=== PATIENT | female | born 1985 | race Two or more races ===

== ENCOUNTER 2017-02-14 13:45 | Inpatient (IN) | payer OTHER ==
[2017-02-14 17:09] VITALS: BMI 30.2
--- NOTE | 2017-02-14 17:25 | HP ---
CIWA Score - CIWA Score Nausea/Vomitin-Mild Nausea/No Vomiting Muscle Tremors: 4-Moderate,w/Arms Extend Anxiety: 4-Mod. Anxious/Guarded Agitation: 4-Moderately Restless Paroxysmal Sweats: 1-Minimal Palms Moist Orientation: 1-Uncertain about Date Tacttile Disturbances: 0-None Auditory Disturbances: 0-None Visual Disturbances: 0-None Headache: 2-Mild CIWA-Ar Total Score: 17 Admission ROS S - HPI Chief Complaint: 31 Allergies/Adverse Reactions: Allergies Allergy/AdvReac Type Severity Reaction Status Date / Time gabapentin Allergy Mild Itching Verified 06/15/16 20:51 History of Present Illness: 31 years old female with long history of alcohol nicotine dependence, has cirrhosis of the liver and depression is admitted to detox Exam Limitations: No Limitations - Ebola screening Have you traveled outside of the country in the last 21 days: No Have you had contact with anyone from an Ebola affected area: No Have you been sick,other than usual withdrawal symptoms: No Do you have a fever: No - Review of Systems Constitutional: Chills, Changes in sleep, Weight Stable EENT: reports: No Symptoms Reported Respiratory: reports: Productive cough (yellowish) Cardiac: reports: No Symptoms Reported GI: reports: Nausea, Poor Fluid Intake, Abdominal cramping : reports: No Symptoms Reported, Other (kidney stone 2002) Musculoskeletal: reports: Back Pain, Joint Pain (legs), Muscle Weakness (legs) Integumentary: reports: Bruising (mid lower abdomen - dog bit - 02/13/17 treated at [facility]) Neuro: reports: Tremors Endocrine: reports: No Symptoms Reported Psychiatric: reports: Judgement Intact, Depressed Other Systems: Reviewed and Negative Patient History - Patient Medical History Hx Anemia: Yes Hx Asthma: No Hx Chronic Obstructive Pulmonary Disease (COPD): No Hx Cancer: No Hx Cardiac Disorders: No Hx Congestive Heart Failure: No Hx Hypertension: No Hx Hypercholesterolemia: No Hx Pacemaker: No HX Cerebrovascular Accident: No Hx Seizures: No Hx Dementia: No Hx Diabetes: No Hx Gastrointestinal Disorders: Yes Hx Liver Disease: Yes (cirrhosis, no hepatitis, on transplant list) Hx Genitourinary Disorders: Yes (history of kidney stone 2002) Hx Sexually Transmitted Disorders: No Hx Renal Disease (ESRD): No Hx Thyroid Disease: No Hx Human Immunodeficiency Virus (HIV): No Hx Hepatitis C: No Hx Depression: Yes Hx Suicide Attempt: No Hx Bipolar Disorder: No Hx Schizophrenia: No - Patient Surgical History Past Surgical History: Yes Hx Neurologic Surgery: No Hx Cataract Extraction: No Hx Cardiac Surgery: No Hx Lung Surgery: No Hx Breast Surgery: No Hx Breast Biopsy: No Hx Abdominal Surgery: Yes ( gastric bypass 2006) Hx Appendectomy: No Hx Cholecystectomy: No Hx Genitourinary Surgery: Yes (kidney stone passed 2002) Hx Section: No Hx Orthopedic Surgery: No Hx Hysterectomy: No Other Surgical History: GASTRIC BYPASS Anesthesia Reaction: No - PPD History Previous Implant?: Yes Documented Results: Negative w/o proof Implanted On Prior [facility] Admission?: No PPD to be Administered?: Yes - Reproductive History Patient is a Female of Child Bearing Age (11 -55 yrs old): Yes Last Menstrual Period: 01/21/17 Patient : No - Smoking Cessation Smoking history: Current every day smoker Have you smoked in the past 12 months: Yes Aproximately how many cigarettes per day: 3 If you are a former smoker, when did you quit?: 04/2015 Cigars Per Day: 0 Hx Chewing Tobacco Use: No Initiated information on smoking cessation: Yes 'Breaking Loose' booklet given: 02/14/17 - Substance & Tx. History Hx Alcohol Use: Yes Hx Substance Use: No Substance Use Type: Alcohol Hx Substance Use Treatment: Yes - Substances Abused Alcohol Route: Oral Frequency: Daily Amount used: pint + shayy Age of first use: 20 Date of Last Use: 02/14/17 Family Disease History - Family Disease History Family Disease History: Diabetes: Mother (thyroid bipolar), CA: Father ( ), Other: Mother, Sister (thyroid) Admission Physical Exam S - Vital Signs Vital Signs: Vital Signs - 24 hr 02/14/17 17:06 Temperature 97.7 F Pulse Rate 70 Respiratory 18 Rate Blood Pressure 116/80 - Physical General Appearance: Yes: Nourished, Appropriately Dressed, Moderate Distress, Alcohol on Breath, Tremorous, Irritable, Sweating, Anxious HEENTM: Yes: Hearing grossly Normal, Normal ENT Inspection, Normocephalic, Normal Voice Respiratory: Yes: Chest Non-Tender, Lungs Clear, Normal Breath Sounds, No Respiratory Distress, No Accessory Muscle Use Neck: Yes: Supple, Trachea in good position Breast: Yes: Breasts Symetrical Cardiology: Yes: Regular Rhythm, Regular Rate, S1, S2 Abdominal: Yes: Non Tender, Soft Genitourinary: Yes: Within Normal Limits Back: Yes: Normal Inspection Musculoskeletal: Yes: full range of Motion, Gait Steady (cane), Back pain Extremities: Yes: Normal Range of Motion, Non-Tender, Tremors, Swelling (legs x 1 year) Neurological: Yes: Alert, Motor Strength 5/5, Normal Response, Depressed Affect Integumentary: Yes: Warm Lymphatic: Yes: Within Normal Limits - Diagnostic (1) Opioid dependence with withdrawal Current Visit: Yes Status: Acute (2) Nicotine dependence Current Visit: Yes Status: Acute Qualifiers: Nicotine product type: cigarettes Substance use status: in withdrawal Qualified Code(s): F17.213 - Nicotine dependence, cigarettes, with withdrawal (3) Use of cane as ambulatory aid Current Visit: Yes Status: Acute (4) GERD (gastroesophageal reflux disease) Current Visit: Yes Status: Acute Qualifiers: Esophagitis presence: without esophagitis Qualified Code(s): K21.9 - Gastro-esophageal reflux disease without esophagitis (5) Swelling of lower extremity Current Visit: Yes Status: Chronic (6) Depression (emotion) Current Visit: Yes Status: Suspected Qualifiers: Depression Type: dysthymia Qualified Code(s): F34.1 - Dysthymic disorder (7) Cirrhosis of liver Current Visit: Yes Status: Chronic Qualifiers: Hepatic cirrhosis type: alcoholic cirrhosis Ascites presence: without ascites Qualified Code(s): K70.30 - Alcoholic cirrhosis of liver without ascites Comment: since 2014 (8) S/P gastric bypass Current Visit: Yes Status: Resolved Comment: 2006 (9) Kidney stone Current Visit: Yes Status: Resolved Comment: 2002 Cleared for Admission [facility] - Detox or Rehab [facility] Level of Care: Medically Managed Detox Regimen/Protocol: Librium [facility] Breath Alcohol Content Breath Alcohol Content: 0.112 Urine Pregancy Test - Result Urine Test Results: Negative- NO Line Present Urine Drug Screen - Results Drug Screen Negative: No Urine Drug Screen Results: BZO-Benzodiazepines
[2017-02-14] MEDS ORDERED: MAGNESIUM CITRATE 300 ML BOTTLE PO PRN (17:38)
[2017-02-14] MEDS ORDERED: NICOTINE POLACRILEX 2 MG GUM BC PRN (17:38)
[2017-02-14] MEDS ORDERED: MAGNESIUM HYDROX 2400MG/30ML ORAL SUSPENSION 30 ML CUP PO PRN (17:38)
[2017-02-14] MEDS ORDERED: IBUPROFEN 400 MG TABLET (FP) PO PRN (17:38)
[2017-02-14] MEDS ORDERED: guaiFENesin/D-METHORPHAN HB 10 ML UNIT-DOSE CUPS PO PRN (17:38)
[2017-02-14] MEDS ORDERED: LOPERAMIDE HCL 2 MG CAPSULE PO PRN (17:38)
[2017-02-14] MEDS ORDERED: MENTHOL/PHENOL 1 EACH UD MM PRN (17:38)
[2017-02-14] MEDS ORDERED: P-EPHED 60MG/TRIPROLIDI 2.5MG TABLET PO PRN (17:38)
[2017-02-14] MEDS: chlordiazePOXIDE HCL 25 MG CAPSULE PO PRN (20:39)
[2017-02-14] MEDS: chlordiazePOXIDE HCL 25 MG CAPSULE PO SCH (22:21)
[2017-02-14] MEDS: RANITIDINE HCL 150 MG TABLET (FP) PO SCH (22:22)
[2017-02-14] MEDS: THIAMINE HCL 100 MG TABLET (FP) PO SCH (22:22)
[2017-02-14] MEDS: SPIRONOLACTONE 25 MG TABLET (FP) PO SCH (22:22)
[2017-02-14] MEDS: diphenhydrAMINE HCL 50 MG CAPSULE PO PRN (22:23)
[2017-02-14 23:06] LABS: URINE APPEARANCE SLCLOUDY; URINE BILIRUBIN NEGATIVE (NEGATIVE); URINE BLOOD NEGATIVE (NEGATIVE); URINE COLOR YELLOW; URINE GLUCOSE (UA) NEGATIVE (NEGATIVE); URINE KETONE NEGATIVE (NEGATIVE); URINE NITRITE NEGATIVE (NEGATIVE); URINE PROTEIN NEGATIVE (NEGATIVE); URINE UROBILINOGEN 2.0 E.U/dl E.U./dl (0.2-1.0)
[2017-02-14 23:15] LABS: URINE LEUK ESTERASE TRACE (NEGATIVE)
[2017-02-14 23:26] LABS: URINE BACTERIA FEW /hpf (NONE SEEN); URINE MUCUS MODERATE; URINE RBC 1 /hpf (0-3); URINE WBC 5 /hpf (3-5)
[2017-02-15] MEDS: diphenhydrAMINE HCL 50 MG CAPSULE PO PRN (01:23)
[2017-02-15] MEDS: chlordiazePOXIDE HCL 25 MG CAPSULE PO SCH ×4 (05:41→22:36)
--- NOTE | 2017-02-15 09:15 | CONSULT ---
[facility] Psychiatric Consult - Data Date of interview: 02/15/17 Admission source: [facility] Identifying data: This mis 31 years old female with nultiple medical iossues, withy no history of psychiatric hospita;izations, intoxicated with Alcohol and Nicotine Substance Abuse History: - Smoking Cessation. Smoking history: Current every day smoker. Have you smoked in the past 12 months: Yes. Aproximately how many cigarettes per day: 3. If you are a former smoker, when did you quit?: 04/2015. Cigars Per Day: 0. Hx Chewing Tobacco Use: No. Initiated information on smoking cessation: Yes. 'Breaking Loose' booklet given: 02/14/17. - Substance & Tx. History. Hx Alcohol Use: Yes. Hx Substance Use: No. Substance Use Type : Alcohol. Hx Substance Use Treatment: Yes. - Substances Abused. Alcohol. Route: Oral. Frequency: Daily. Amount used: pint + shayy. Age of first use : 20. Date of Last Use: 02/14/17 Medical History: Gastric Bypass on 2006, lost 170 LBS, Nephrolitihasis, GERD, USING CANE FOR AMBULATION, Liver cirrhosis history, Edema lower extremities, Hypoalbunemia history, Hypomagnesmia history, UTI histopry Psychiatric History: Patient reports history of depression and insomnia, reports no history of psychiatric admissions, reports taking prior to admission : Ambien 10mg po qhs. Cymbalta 60mg po qd Physical/Sexual Abuse/Trauma History: Denies Additional Comment: Ambien 10mg po qhs. Cymbalta 60mg po qd Mental Status Exam - Mental Status Exam Alert and Oriented to: Person Cognitive Function: Fair Patient Appearance: Well Groomed Mood: Sad Affect: Mood Congruent Patient Behavior: Cooperative Speech Pattern: Appropriate Voice Loudness: Normal Thought Process: Goal Oriented Thought Disorder: Being Controlled Hallucinations: Denies Suicidal Ideation: Denies Homicidal Ideation: Denies Insight/Judgement: Fair Sleep: Difficulty falling asleep Appetite: Weight gain Muscle strength/Tone: Mild Hypotonicity Gait/Station: Shuffling Additional Comments: Ambien 10mg po qhs. Cymbalta 60mg po qd Psychiatric Findings - Problem List ([place] 1, 2,3) (1) Nicotine dependence Current Visit: Yes Status: Acute Qualifiers: Nicotine product type: cigarettes Substance use status: in withdrawal Qualified Code(s): F17.213 - Nicotine dependence, cigarettes, with withdrawal (2) Opioid dependence with withdrawal Current Visit: Yes Status: Acute (3) Elevated liver enzymes Current Visit: No Status: Acute (4) Drug-induced mood disorder Current Visit: Yes Status: Acute - Initial Treatment Plan Initial Treatment Plan: Ambien 10mg po qhs. Cymbalta 60mg po qd
[2017-02-15 09:59] LABS: MCH 22.9 pg (25.7-33.7); MCHC 31.2 g/dl (32.0-36.0); MEAN CELL VOLUME 73.2 fl (80-96); PLATELET COUNT 204 K/MM3 (134-434); RDW 19.6 % (11.6-15.6); WHITE BLOOD COUNT 4.9 K/mm3 (4.0-10.0)
[2017-02-15] MEDS: SPIRONOLACTONE 25 MG TABLET (FP) PO SCH ×2 (10:47→22:35)
[2017-02-15] MEDS: ASPIRIN 81 MG CHEWABLE TABLETS PO SCH (10:47)
[2017-02-15] MEDS: RANITIDINE HCL 150 MG TABLET (FP) PO SCH ×2 (10:47→22:37)
[2017-02-15] MEDS: DULoxetine HCL 60 MG CAPSULE.DR PO SCH (10:48)
[2017-02-15] MEDS: NICOTINE 14 MG/24 HOURS TOPICAL PATCH TD SCH ×2 (10:48→15:11)
[2017-02-15] MEDS: PRENATAL VITAMINS W/ FOLIC ACID TABLET (FP) PO SCH (10:48)
[2017-02-15 11:19] LABS: ALBUMIN 2.5 g/dl (3.4-5.0); ALK PHOS 196 U/L (45-117); ANION GAP 8 (8-16); BILIRUBIN,TOTAL 0.6 mg/dL (0.2-1.0); CALCIUM 8.8 mg/dL (8.5-10.1); CO2 29 mmol/L (21-32); CREATININE 0.6 mg/dL (0.55-1.02); GLUCOSE,RANDOM 77 mg/dL (74-106); SGOT/AST 33 U/L (15-37); SGPT/ALT 20 U/L (12-78); TOT PROT 6.2 g/dl (6.4-8.2)
--- NOTE | 2017-02-15 11:54 | PN ---
[facility] CIWA - CIWA Score Nausea/Vomitin Muscle Tremors: 2 Anxiety: 3 Agitation: 3 Paroxysmal Sweats: 3 Orientation: 0-Oriented Tacttile Disturbances: 2-Mild Itch/Numbness/Burn Auditory Disturbances: 0-None Visual Disturbances: 0-None Headache: 0-None Present CIWA-Ar Total Score: 15 S Progress Note (SOAP) Subjective: interrupted sleep, sweats, neuropathy Objective: 02/15/17 11:50 02/15/17 11:51 Vital Signs Temperature 98.1 F 02/15/17 09:44 Pulse Rate 76 02/15/17 09:44 Respiratory Rate 18 02/15/17 09:44 Blood Pressure 115/73 02/15/17 09:44 O2 Sat by Pulse Oximetry (%) Laboratory Tests 02/14/17 02/15/17 02/15/17 22:21 07:00 07:00 WBC 4.9 RBC 4.37 Hgb 10.0 L Hct 32.0 L MCV 73.2 L MCHC 31.2 L RDW 19.6 H D Plt Count 204 MPV 9.0 Sodium 143 Potassium 4.4 D Chloride 106 Carbon Dioxide 29 Anion Gap 8 BUN 11 Creatinine 0.6 Creat Clearance w eGFR > 60 Random Glucose 77 Calcium 8.8 Total Bilirubin 0.6 D AST 33 D ALT 20 D Alkaline Phosphatase 196 H D Total Protein 6.2 L Albumin 2.5 L D Urine Color Yellow Urine Appearance Slcloudy Urine pH 7.0 D Ur Specific [place] 1.016 Urine Protein Negative Urine Glucose (UA) Negative Urine Ketones Negative Urine Blood Negative Urine Nitrite Negative Urine Bilirubin Negative Urine Urobilinogen 2.0 e.u/dl H Ur Leukocyte Esterase Trace H D Urine RBC 1 Urine WBC 5 Ur Epithelial Cells Moderate Urine Bacteria Few Urine Mucus Moderate pt aox3 lying in bed 02/15/17 11:52 Assessment: 02/15/17 11:52 withdrawal sx;s neuropathy lower exremities on cymbalta unable to tolerate gabapentin, lyrica or opioids Plan: cont. detox increase fluids cont present meds
[2017-02-15 12:17] LABS: HYPOCHROMIA 1+; POLYCHROMASIA FEW
[2017-02-15 12:18] LABS: ANISOCYTOSIS 1+
[2017-02-15] MEDS: chlordiazePOXIDE HCL 25 MG CAPSULE PO PRN (13:21)
[2017-02-15] MEDS ORDERED: IBUPROFEN 400 MG TABLET (FP) PO PRN (13:31)
[2017-02-15] MEDS: MAG HYDROX/AL HYDROX/SIMETH 30 ML UNIT-DOSE CUP PO PRN (14:20)
[2017-02-15] MEDS: CYCLOBENZAPRINE HCL 10 MG TABLET (FP) PO PRN ×2 (16:28→22:36)
--- NOTE | 2017-02-15 17:19 | EKG ---
Test Reason : Blood Pressure : / mmHG Vent. Rate : 075 BPM Atrial Rate : 075 BPM P-R Int : 150 ms QRS Dur : 068 ms QT Int : 396 ms P-R-T Axes : 063 065 051 degrees QTc Int : 442 ms POOR DATA QUALITY, INTERPRETATION MAY BE ADVERSELY AFFECTED NORMAL SINUS RHYTHM WITH SINUS ARRHYTHMIA NORMAL ECG WHEN COMPARED WITH ECG OF 21-JUL-2015 17:44, NO SIGNIFICANT CHANGE WAS FOUND Confirmed by CATRACHITO WITT, PHU ([id number]) on 02/15/2017 5:19:23 PM Referred By: Emir Banegas Confirmed By:PHU WINSTON MD
[2017-02-15] MEDS ORDERED: IBUPROFEN 600 MG TABLET (FP) PO ONE (21:45)
[2017-02-15] MEDS: ZOLPIDEM TARTRATE 10 MG TABLET (PARK CARE ONLY) PO PRN (22:36)
[2017-02-15] MEDS: THIAMINE HCL 100 MG TABLET (FP) PO SCH (22:37)
[2017-02-16] MEDS: chlordiazePOXIDE HCL 25 MG CAPSULE PO SCH ×3 (05:57→17:43)
[2017-02-16] MEDS: CYCLOBENZAPRINE HCL 10 MG TABLET (FP) PO PRN ×3 (06:01→17:47)
[2017-02-16] MEDS: RANITIDINE HCL 150 MG TABLET (FP) PO SCH ×2 (10:41→22:26)
[2017-02-16] MEDS: PRENATAL VITAMINS W/ FOLIC ACID TABLET (FP) PO SCH (10:41)
[2017-02-16] MEDS: ASPIRIN 81 MG CHEWABLE TABLETS PO SCH (10:41)
[2017-02-16] MEDS: SPIRONOLACTONE 25 MG TABLET (FP) PO SCH ×2 (10:41→22:25)
[2017-02-16] MEDS: DULoxetine HCL 60 MG CAPSULE.DR PO SCH (10:41)
[2017-02-16] MEDS: NICOTINE 14 MG/24 HOURS TOPICAL PATCH TD SCH (10:42)
[2017-02-16] MEDS: MAG HYDROX/AL HYDROX/SIMETH 30 ML UNIT-DOSE CUP PO PRN (12:37)
[2017-02-16] MEDS: chlordiazePOXIDE HCL 25 MG CAPSULE PO PRN (12:37)
--- NOTE | 2017-02-16 14:41 | PN ---
S CIWA - CIWA Score Nausea/Vomitin Muscle Tremors: 3 Anxiety: 3 Agitation: 2 Paroxysmal Sweats: 1-Minimal Palms Moist Orientation: 0-Oriented Tacttile Disturbances: 1-Very Mild Itch/Numbness Auditory Disturbances: 1-Very Mild Visual Disturbances: 1-Very Mild Sensitivity Headache: 2-Mild CIWA-Ar Total Score: 17 BHS Progress Note (SOAP) Subjective: ALERT,IRRITABLE,ANXIOUS,INTERRUPTED SLEEP,TREMOR,PAIN IN THE BODY Objective: 02/16/17 14:40 Vital Signs Temperature 98.2 F 02/16/17 14:15 Pulse Rate 118 H 02/16/17 14:15 Respiratory Rate 20 02/16/17 14:15 Blood Pressure 122/74 02/16/17 14:15 O2 Sat by Pulse Oximetry (%) EKG NSR WITH SINUS ARRHYTHMIA Laboratory Last Values WBC 4.9 K/mm3 (4.0-10.0) 02/15/17 07:00 RBC 4.37 M/mm3 (3.60-5.2) 02/15/17 07:00 Hgb 10.0 GM/dL (10.7-15.3) L 02/15/17 07:00 Hct 32.0 % (32.4-45.2) L 02/15/17 07:00 MCV 73.2 fl (80-96) L 02/15/17 07:00 MCHC 31.2 g/dl (32.0-36.0) L 02/15/17 07:00 RDW 19.6 % (11.6-15.6) H D 02/15/17 07:00 Plt Count 204 K/MM3 (134-434) 02/15/17 07:00 MPV 9.0 fl (7.5-11.1) 02/15/17 07:00 Polychromasia Few 02/15/17 07:00 Hypochromic-Microcytic 1+ 02/15/17 07:00 Anisocytosis 1+ 02/15/17 07:00 Macrocytosis Few 02/15/17 07:00 Sodium 143 mmol/L (136-145) 02/15/17 07:00 Potassium 4.4 mmol/L (3.5-5.1) D 02/15/17 07:00 Chloride 106 mmol/L (98-107) 02/15/17 07:00 Carbon Dioxide 29 mmol/L (21-32) 02/15/17 07:00 Anion Gap 8 (8-16) 02/15/17 07:00 BUN 11 mg/dL (7-18) 02/15/17 07:00 Creatinine 0.6 mg/dL (0.55-1.02) 02/15/17 07:00 Creat Clearance w eGFR > 60 (>60) 02/15/17 07:00 Random Glucose 77 mg/dL (74-106) 02/15/17 07:00 Calcium 8.8 mg/dL (8.5-10.1) 02/15/17 07:00 Total Bilirubin 0.6 mg/dL (0.2-1.0) D 02/15/17 07:00 AST 33 U/L (15-37) D 02/15/17 07:00 ALT 20 U/L (12-78) D 02/15/17 07:00 Alkaline Phosphatase 196 U/L (45-117) H D 02/15/17 07:00 Total Protein 6.2 g/dl (6.4-8.2) L 02/15/17 07:00 Albumin 2.5 g/dl (3.4-5.0) L D 02/15/17 07:00 Urine Color Yellow 02/14/17 22:21 Urine Appearance Slcloudy 02/14/17 22:21 Urine pH 7.0 (5.0-8.0) D 02/14/17 22:21 Ur Specific [place] 1.016 (1.001-1.035) 02/14/17 22:21 Urine Protein Negative (NEGATIVE) 02/14/17 22:21 Urine Glucose (UA) Negative (NEGATIVE) 02/14/17 22:21 Urine Ketones Negative (NEGATIVE) 02/14/17 22:21 Urine Blood Negative (NEGATIVE) 02/14/17 22:21 Urine Nitrite Negative (NEGATIVE) 02/14/17 22:21 Urine Bilirubin Negative (NEGATIVE) 02/14/17 22:21 Urine Urobilinogen 2.0 e.u/dl E.U./dl (0.2-1.0) H 02/14/17 22:21 Ur Leukocyte Esterase Trace (NEGATIVE) H D 02/14/17 22:21 Urine RBC 1 /hpf (0-3) 02/14/17 22:21 Urine WBC 5 /hpf (3-5) 02/14/17 22:21 Ur Epithelial Cells Moderate /hpf (FEW) 02/14/17 22:21 Urine Bacteria Few /hpf (NONE SEEN) 02/14/17 22:21 Urine Mucus Moderate 02/14/17 22:21 RPR Titer Nonreactive (NONREACTIVE) 02/15/17 07:00 Assessment: 02/16/17 14:41 WITHDRAWAL SYMPTOM Plan: CONTINUE DETOX
[2017-02-16] MEDS: THIAMINE HCL 100 MG TABLET (FP) PO SCH (22:25)
[2017-02-16] MEDS: chlordiazePOXIDE 5 MG CAPSULE PO SCH (22:26)
[2017-02-16] MEDS: ZOLPIDEM TARTRATE 10 MG TABLET (PARK CARE ONLY) PO PRN (22:26)
[2017-02-16] MEDS ORDERED: IBUPROFEN 600 MG TABLET (FP) PO ONE (22:35)
[2017-02-17] MEDS: chlordiazePOXIDE 5 MG CAPSULE PO SCH ×3 (05:43→17:18)
[2017-02-17] MEDS: CYCLOBENZAPRINE HCL 10 MG TABLET (FP) PO PRN ×3 (05:46→22:36)
[2017-02-17] MEDS ORDERED: LIDOCAINE 5% TOPICAL PATCH TP SCH (10:00)
[2017-02-17] MEDS: ASPIRIN 81 MG CHEWABLE TABLETS PO SCH (10:50)
[2017-02-17] MEDS: SPIRONOLACTONE 25 MG TABLET (FP) PO SCH ×2 (10:50→22:36)
[2017-02-17] MEDS: DULoxetine HCL 60 MG CAPSULE.DR PO SCH (10:50)
[2017-02-17] MEDS: NICOTINE 14 MG/24 HOURS TOPICAL PATCH TD SCH (10:51)
[2017-02-17] MEDS: PRENATAL VITAMINS W/ FOLIC ACID TABLET (FP) PO SCH (10:52)
[2017-02-17] MEDS: RANITIDINE HCL 150 MG TABLET (FP) PO SCH ×2 (10:52→22:36)
--- NOTE | 2017-02-17 13:00 | PN ---
S Progress Note (SOAP) Subjective: ALERT,IRRITABLE,ANXIOUS,INTERRUPTED SLEEP Objective: 02/17/17 12:59 Vital Signs Temperature 97.1 F L 02/17/17 10:00 Pulse Rate 66 02/17/17 10:00 Respiratory Rate 18 02/17/17 10:00 Blood Pressure 108/66 02/17/17 10:00 O2 Sat by Pulse Oximetry (%) Assessment: 02/17/17 13:00 WITHDRAWAL SYMPTOM Plan: CONTINUE DETOX
[2017-02-17] MEDS: hydrOXYzine PAMOATE 50 MG CAPSULE (FP) PO PRN ×2 (14:06→22:35)
[2017-02-17] MEDS: MAG HYDROX/AL HYDROX/SIMETH 30 ML UNIT-DOSE CUP PO PRN (17:46)
[2017-02-17] MEDS: chlordiazePOXIDE HCL 10 MG CAPSULE PO SCH (22:35)
[2017-02-17] MEDS: THIAMINE HCL 100 MG TABLET (FP) PO SCH (22:35)
[2017-02-17] MEDS: ZOLPIDEM TARTRATE 10 MG TABLET (PARK CARE ONLY) PO PRN (22:36)
[2017-02-18] MEDS ORDERED: chlordiazePOXIDE 5 MG CAPSULE ONE (04:56)
[2017-02-18] MEDS: chlordiazePOXIDE HCL 10 MG CAPSULE PO SCH (06:12)
[2017-02-18] MEDS: CYCLOBENZAPRINE HCL 10 MG TABLET (FP) PO PRN (06:15)
[2017-02-18] MEDS: SPIRONOLACTONE 25 MG TABLET (FP) PO SCH (10:05)
[2017-02-18] MEDS: DULoxetine HCL 60 MG CAPSULE.DR PO SCH (10:05)
[2017-02-18] MEDS: ASPIRIN 81 MG CHEWABLE TABLETS PO SCH (10:05)
[2017-02-18] MEDS: RANITIDINE HCL 150 MG TABLET (FP) PO SCH (10:05)
[2017-02-18] MEDS: PRENATAL VITAMINS W/ FOLIC ACID TABLET (FP) PO SCH (10:05)
[2017-02-18 11:01] VITALS: BP 96/58; PULSE 99; TEMP 97.2
--- NOTE | 2017-02-18 12:49 | DS ---
[facility] Detox Discharge Summary Admission Date: 02/14/17 Discharge Date: 02/18/17 - History Present History: Alcohol Dependence Pertinent Past History: Anemia Cirrhosis of liver - Physical Exam Results Vital Signs: Vital Signs Temperature 97.2 F L 02/18/17 10:00 Pulse Rate 99 H 02/18/17 10:00 Respiratory Rate 18 02/18/17 10:00 Blood Pressure 96/58 02/18/17 10:00 O2 Sat by Pulse Oximetry (%) Pertinent Admission Physical Exam Findings: Withdrawal symptoms Laboratory Tests 02/14/17 02/15/17 02/15/17 22:21 07:00 07:00 WBC 4.9 RBC 4.37 Hgb 10.0 L Hct 32.0 L MCV 73.2 L MCHC 31.2 L RDW 19.6 H D Plt Count 204 MPV 9.0 Polychromasia Few Hypochromic-Microcytic 1+ Anisocytosis 1+ Macrocytosis Few Sodium 143 Potassium 4.4 D Chloride 106 Carbon Dioxide 29 Anion Gap 8 BUN 11 Creatinine 0.6 Creat Clearance w eGFR > 60 Random Glucose 77 Calcium 8.8 Total Bilirubin 0.6 D AST 33 D ALT 20 D Alkaline Phosphatase 196 H D Total Protein 6.2 L Albumin 2.5 L D Urine Color Yellow Urine Appearance Slcloudy Urine pH 7.0 D Ur Specific [place] 1.016 Urine Protein Negative Urine Glucose (UA) Negative Urine Ketones Negative Urine Blood Negative Urine Nitrite Negative Urine Bilirubin Negative Urine Urobilinogen 2.0 e.u/dl H Ur Leukocyte Esterase Trace H D Urine RBC 1 Urine WBC 5 Ur Epithelial Cells Moderate Urine Bacteria Few Urine Mucus Moderate RPR Titer 02/15/17 07:00 WBC RBC Hgb Hct MCV MCHC RDW Plt Count MPV Polychromasia Hypochromic-Microcytic Anisocytosis Macrocytosis Sodium Potassium Chloride Carbon Dioxide Anion Gap BUN Creatinine Creat Clearance w eGFR Random Glucose Calcium Total Bilirubin AST ALT Alkaline Phosphatase Total Protein Albumin Urine Color Urine Appearance Urine pH Ur Specific [place] Urine Protein Urine Glucose (UA) Urine Ketones Urine Blood Urine Nitrite Urine Bilirubin Urine Urobilinogen Ur Leukocyte Esterase Urine RBC Urine WBC Ur Epithelial Cells Urine Bacteria Urine Mucus RPR Titer Nonreactive Labs noted - Treatment Hospital Course: Detox Protocol Followed, Detoxed Safely, Responded well, Discharged Condition Good - Medication Discharge Medications: Ambulatory Orders Amoxicillin - [Amoxicillin 875mg Tablet -] 875 mg PO BID 02/14/17 Duloxetine HCl [Cymbalta -] 60 mg PO DAILY 02/14/17 Rifaximin [Xifaxan] 550 mg PO DAILY 02/14/17 Spironolactone [Aldactone] 25 mg PO BID 02/14/17 Tramadol HCl 50 mg PO TID 02/14/17 Zolpidem Tartrate [Ambien] 10 mg PO HS 02/14/17 Duloxetine HCl [Cymbalta -] 60 mg PO DAILY #30 capsule. 02/15/17 Zolpidem Tartrate [Ambien] 10 mg PO HS #14 tablet MDD 10 02/15/17 - Diagnosis (1) Nicotine dependence Status: Chronic Qualifiers: Nicotine product type: cigarettes Substance use status: in withdrawal Qualified Code(s): F17.213 - Nicotine dependence, cigarettes, with withdrawal (2) Cirrhosis of liver Status: Chronic Qualifiers: Hepatic cirrhosis type: alcoholic cirrhosis Ascites presence: without ascites Qualified Code(s): K70.30 - Alcoholic cirrhosis of liver without ascites (3) Depression (emotion) Status: Chronic Qualifiers: Depression Type: dysthymia Qualified Code(s): F34.1 - Dysthymic disorder (4) Anemia Status: Chronic (5) Alcohol dependence with withdrawal, uncomplicated Status: Acute - AMA Did Patient Leave Against Medical Advice: No
== END 2017-02-18 10:11 | disposition home or self-care (01) | DRG 773 ==
LOC: YASAS 13:45 → Y6N 18:50
PROVIDERS: ADMIT Internal Medicine Addiction Medicine; ATTEND Internal Medicine Addiction Medicine
PROC: HZ2ZZZZ Detoxification Services for Substance Abuse Treatment (ICD-10-PCS; principal; 2017-02-18)
DX: F11.23 Opioid dependence with withdrawal (principal); F10.230 Alcohol dependence with withdrawal, uncomplicated; F17.213 Nicotine dependence, cigarettes, with withdrawal; F19.24 Other psychoactive substance dependence with psychoactive substance-induced mood disorder; F34.1 Dysthymic disorder; K70.30 Alcoholic cirrhosis of liver without ascites; K21.9 Gastro-esophageal reflux disease without esophagitis; D64.9 Anemia, unspecified; R60.0 Localized edema; R26.2 Difficulty in walking, not elsewhere classified; Z98.84 Bariatric surgery status
CPT/HCPCS: 36415; 80053; 81003; 81015; 85027; 86593; 93005; 93010

== ENCOUNTER 2017-12-19 20:32 | Emergency (ER) | payer OTHER ==
--- NOTE | 2017-12-19 21:45 | PDOC ---
Rapid Medical Evaluation Time Seen by Provider: 12/19/17 21:44 Medical Evaluation: Allergies Allergy/AdvReac Type Severity Reaction Status Date / Time gabapentin Allergy Mild Itching Verified 06/15/16 20:51 I have performed a brief in-person evaluation of this patient. The patient presents with a chief complaint of: congestion x 2 days, breathing stops at night, gained 17 lbs in last 3-4 days Pertinent physical exam findings: non pitting edema b/l LEs. I have ordered the following: labs, EKG, CXR, UA/hcg The patient will proceed to the ED for further evaluation.
[2017-12-19 21:51] VITALS: BP 110/73; PULSE 113; TEMP 98.3; BMI 38.2
[2017-12-19 22:12] LABS: BASO % 1.2 % (0-2.0); EOS % 2.4 % (0-4.5); HEMATOCRIT 42.9 % (32.4-45.2); HEMOGLOBIN 14.3 GM/dL (10.7-15.3); LYMPH % 32.5 % (8-40); MCH 30.5 pg (25.7-33.7); MCHC 33.4 g/dl (32.0-36.0); MEAN CELL VOLUME 91.4 fl (80-96); MEAN PLT VOLUME 7.9 fl (7.5-11.1); MONO % 8.9 % (3.8-10.2); PLATELET COUNT 187 K/MM3 (134-434); RBC 4.69 M/mm3 (3.60-5.2); RDW 15.1 % (11.6-15.6); WHITE BLOOD COUNT 4.8 K/mm3 (4.0-10.0)
[2017-12-19 22:38] LABS: HCG,QUALITATIVE URINE NEGATIVE
[2017-12-19 22:40] LABS: URINE APPEARANCE CLEAR; URINE BILIRUBIN NEGATIVE (NEGATIVE); URINE BLOOD 1+ (NEGATIVE); URINE COLOR STRAW; URINE GLUCOSE (UA) NEGATIVE (NEGATIVE); URINE KETONE NEGATIVE (NEGATIVE); URINE LEUK ESTERASE TRACE (NEGATIVE); URINE NITRITE NEGATIVE (NEGATIVE); URINE PROTEIN NEGATIVE (NEGATIVE); URINE UROBILINOGEN NEGATIVE mg/dL (0.2-1.0)
[2017-12-19 22:46] LABS: EPI CELLS RARE /HPF (FEW)
[2017-12-19 22:50] LABS: ALBUMIN 3.5 g/dl (3.4-5.0); ANION GAP 11 (8-16); BLOOD UREA NITROGEN 4 mg/dL (7-18); CALCIUM 8.3 mg/dL (8.5-10.1); CHLORIDE 101 mmol/L (98-107); CO2 27 mmol/L (21-32); CREATININE 0.7 mg/dL (0.55-1.02); GLUCOSE,RANDOM 83 mg/dL (74-106); POTASSIUM 4.2 mmol/L (3.5-5.1); SGOT/AST 148 U/L (15-37); SGPT/ALT 62 U/L (12-78); SODIUM 139 mmol/L (136-145)
[2017-12-19 22:53] LABS: ALK PHOS 416 U/L (45-117); BILIRUBIN,TOTAL 0.8 mg/dL (0.2-1.0); N-TERMINAL BNP 53.43 pg/ml (5-125); TOT PROT 8.1 g/dl (6.4-8.2)
--- NOTE | 2017-12-20 00:06 | PDOC ---
History of Present Illness - History of Present Illness Initial Comments: 12/20/17 00:10 Patient is a 32F with PMHx of stage IV liver cirrhosis, recent kidney stones/ infection and presents to the ED with bilateral lower extremity swelling and weight gain for 5 days. Patient states she noticed that she has been gaining weight for the past 5 days. 2 days ago she states she has been dry heaving. Patient also endorses epigastric pain that radiates to her right flank. LMP 1.5 months ago. <Janette Willis - Last Filed: 12/20/17 00:10> - General History Source: Patient <Mark Patel - Last Filed: 12/20/17 03:28> - General Chief Complaint: Edema Stated Complaint: PAIN Time Seen by Provider: 12/19/17 21:44 Past History <Janette Willis - Last Filed: 12/20/17 00:10> - Past Medical History Anemia: Yes Asthma: No Cancer: No Cardiac Disorders: No CVA: No COPD: No CHF: No Dementia: No Diabetes: No GI Disorders: Yes (liver cirrhosis (malnutrition)) Disorders: No HTN: No Hypercholesterolemia: No Kidney Stones: Yes Liver Disease: Yes (cirrhosis, no hepatitis, on transplant list) Seizures: No Thyroid Disease: No - Surgical History Abdominal Surgery: Yes ( gastric bypass 2006) Appendectomy: No Cardiac Surgery: No Cholecystectomy: No GI Surgery: Yes (gastric bypass) Lung Surgery: No Neurologic Surgery: No Orthopedic Surgery: No - Reproductive History (#): 2 Para: 2 - Immunization History Immunization Up to Date: Yes - Suicide/Smoking/Psychosocial Hx Smoking Status: Yes Smoking History: Former smoker Have you smoked in the past 12 months: No Number of Cigarettes Smoked Daily: 3 If you are a former smoker, when did you quit?: 04/2015 Cigars Per Day: 0 Information on smoking cessation initiated: No 'Breaking Loose' booklet given: 02/14/17 Hx Alcohol Use: Yes Drug/Substance Use Hx: No Substance Use Type: None Hx Substance Use Treatment: No <Mark Patel - Last Filed: 12/20/17 03:28> - Past Medical History Allergies/Adverse Reactions: Allergies Allergy/AdvReac Type Severity Reaction Status Date / Time gabapentin Allergy Mild Itching Verified 12/19/17 21:45 Home Medications: Ambulatory Orders Rifaximin [Xifaxan] 550 mg PO DAILY 02/14/17 Spironolactone [Aldactone] 25 mg PO BID 02/14/17 Zolpidem Tartrate [Ambien] 10 mg PO HS #14 tablet MDD 10 02/15/17 Cholecalciferol (Vitamin D3) [Vitamin D3 -] 1,000 unit PO DAILY 12/19/17 Folic Acid - 1 mg PO DAILY 12/19/17 Nadolol [Corgard -] 20 mg PO ASDIR 12/19/17 Ondansetron [Zofran *Odt*] 4 mg SL TID #30 od.tablet 12/20/17 Oxycodone HCl [Roxicodone] 5 mg PO QID #21 tablet MDD 4 12/20/17 Review of Systems - Review of Systems Comments:: 12/20/17 00:10 CONSTITUTIONAL: Absent: fever, chills, diaphoresis, generalized weakness, malaise, loss of appetite HEENT: Absent: rhinorrhea, nasal congestion, throat pain, throat swelling, difficulty swallowing, mouth swelling, ear pain, eye pain, visual Changes CARDIOVASCULAR: Absent: chest pain, syncope, palpitations, irregular heart rate, lightheadedness , peripheral edema RESPIRATORY: Absent: cough, shortness of breath, dyspnea with exertion, orthopnea, wheezing, stridor, hemoptysis GASTROINTESTINAL: Present: abdominal pain, nausea Absent: abdominal distension, vomiting, diarrhea, constipation, melena, hematochezia GENITOURINARY: Present: flank pain Absent: dysuria, frequency, urgency, hesitancy, hematuria, genital pain MUSCULOSKELETAL: Absent: myalgia, arthralgia, joint swelling SKIN: Absent: rash, itching, pallor HEMATOLOGIC/IMMUNOLOGIC: Absent: easy bleeding, easy bruising, lymphadenopathy, frequent infections ENDOCRINE: Present: unexplained weight gain. Absent:unexplained weight loss, heat intolerance, cold intolerance NEUROLOGIC: Absent: headache, focal weakness or paresthesias, dizziness, unsteady gait, seizure, mental status changes, bladder or bowel incontinence PSYCHIATRIC: Absent: anxiety, depression, suicidal or homicidal ideation, hallucinations. <Janette Willis - Last Filed: 12/20/17 00:10> *Physical Exam - Vital Signs Last Vital Signs Temp Pulse Resp BP Pulse Ox 98.3 F 113 H 22 110/73 98 12/19/17 21:48 12/19/17 21:48 12/19/17 21:48 12/19/17 21:48 12/19/17 21:48 - Physical Exam Comments: 12/20/17 00:12 GENERAL: Well developed, well nourished. Awake and alert. In no acute distress. HEENT: Normocephalic, atraumatic. PERRLA, EOMI. No conjunctival pallor. Sclerae are non -icteric. Moist mucous membranes. Oropharynx is clear. NECK: Supple. Full ROM. No JVD. No bruits. No thyromegaly. No lymphadenopathy. CARDIOVASCULAR: Regular rate and rhythm. No murmurs, rubs, or gallops. Distal pulses are 2+ and symmetric. PULMONARY: No evidence of respiratory distress. Lungs clear to auscultation bilaterally. No wheezing, rales or rhonchi. ABDOMINAL: Soft. Diffusely tender. Distended. No rebound or guarding. No organomegaly. Normoactive bowel sounds. MUSCULOSKELETAL Normal range of motion at all joints. No bony deformities or tenderness. No CVA tenderness. EXTREMITIES: Non-pitting edema in lower extremities. No cyanosis. No clubbing. No calf tenderness. SKIN: Warm and dry. Normal capillary refill. No rashes. No jaundice. NEUROLOGICAL: Alert, awake, appropriate. <Janette Willis - Last Filed: 12/20/17 00:10> - Vital Signs Last Vital Signs Temp Pulse Resp BP Pulse Ox 98.3 F 113 H 22 110/73 98 12/19/17 21:48 12/19/17 21:48 12/19/17 21:48 12/19/17 21:48 12/19/17 21:48 <Mark Patel - Last Filed: 12/20/17 03:28> ED Treatment Course - LABORATORY CBC & Chemistry Diagram: 12/19/17 22:00 12/19/17 22:00 - ADDITIONAL ORDERS Additional order review: Laboratory Results 12/19/17 12/19/17 22:10 22:00 Sodium 139 Potassium 4.2 Chloride 101 Carbon Dioxide 27 Anion Gap 11 BUN 4 L Creatinine 0.7 Creat Clearance w eGFR > 60 Random Glucose 83 Calcium 8.3 L Total Bilirubin 0.8 D AST 148 H ALT 62 Alkaline Phosphatase 416 H Creatine Kinase 42 Troponin I < 0.02 B-Natriuretic Peptide 53.43 Total Protein 8.1 Albumin 3.5 Urine Color Straw Urine Appearance Clear Urine pH 6.0 Ur Specific [place] 1.002 Urine Protein Negative Urine Glucose (UA) Negative Urine Ketones Negative Urine Blood 1+ H Urine Nitrite Negative Urine Bilirubin Negative Urine Urobilinogen Negative Ur Leukocyte Esterase Trace Urine WBC (Auto) None seen Urine RBC (Auto) None seen Ur Epithelial Cells Rare Urine HCG, Qual Negative 12/19/17 22:00 RBC 4.69 MCV 91.4 MCHC 33.4 RDW 15.1 D MPV 7.9 D Neutrophils % 55.0 Lymphocytes % 32.5 Monocytes % 8.9 Eosinophils % 2.4 D Basophils % 1.2 <Janette Willis - Last Filed: 12/20/17 00:10> - LABORATORY CBC & Chemistry Diagram: 12/19/17 22:00 12/19/17 22:00 - ADDITIONAL ORDERS Additional order review: Laboratory Results 12/19/17 12/19/17 22:10 22:00 Sodium 139 Potassium 4.2 Chloride 101 Carbon Dioxide 27 Anion Gap 11 BUN 4 L Creatinine 0.7 Creat Clearance w eGFR > 60 Random Glucose 83 Calcium 8.3 L Total Bilirubin 0.8 D AST 148 H ALT 62 Alkaline Phosphatase 416 H Creatine Kinase 42 Troponin I < 0.02 B-Natriuretic Peptide 53.43 Total Protein 8.1 Albumin 3.5 Urine Color Straw Urine Appearance Clear Urine pH 6.0 Ur Specific [place] 1.002 Urine Protein Negative Urine Glucose (UA) Negative Urine Ketones Negative Urine Blood 1+ H Urine Nitrite Negative Urine Bilirubin Negative Urine Urobilinogen Negative Ur Leukocyte Esterase Trace Urine WBC (Auto) None seen Urine RBC (Auto) None seen Ur Epithelial Cells Rare Urine HCG, Qual Negative 12/19/17 22:00 RBC 4.69 MCV 91.4 MCHC 33.4 RDW 15.1 D MPV 7.9 D Neutrophils % 55.0 Lymphocytes % 32.5 Monocytes % 8.9 Eosinophils % 2.4 D Basophils % 1.2 <Mark Patel - Last Filed: 12/20/17 03:28> Medical Decision Making - Medical Decision Making 12/20/17 03:27 Dr. Patel: The scribe's documentation has been prepared under my direction and personally reviewed by me in its entirery. I confirm that the note above accurately reflects all work, treatment, procedures, and medical decision making performed by me. <Mark Patel - Last Filed: 12/20/17 03:28> *DC/Admit/Observation/Transfer - Attestations Scribe Attestion: 12/20/17 00:15 Documentation prepared by Janette Willis, acting as medical manager for Mark Patel MD. <Janette Willis - Last Filed: 12/20/17 00:10> - Discharge Dispostion Admit: No <Mark Patel - Last Filed: 12/20/17 03:28> Diagnosis at time of Disposition: Abdominal pain Qualifiers: Abdominal location: unspecified location Qualified Code(s): R10.9 - Unspecified abdominal pain - Discharge Dispostion Disposition: HOME - Prescriptions Prescriptions: Oxycodone HCl [Roxicodone] 5 mg PO QID #21 tablet MDD 4 - Referrals Referrals: Robert Muro MD [Staff Physician] - - Patient Instructions Printed Discharge Instructions: DI for Abdominal Pain-Adult Additional Instructions: Take medication as directed. Avoid alcohol or driving when taking medication. Follow up with the doctors referred to you here in the department.
[2017-12-20] MEDS ORDERED: ONDANSETRON 4 MG/2 ML VIAL IVPUSH STA ×2 (00:09→01:55)
[2017-12-20] MEDS ORDERED: HYDROmorphone HCL CARPU-JECT 1 MG/1 ML DISP.SYRIN IVPUSH ONE ×2 (00:09→01:55)
[2017-12-20] MEDS ORDERED: HYDROmorphone HCL CARPU-JECT 2 MG/1 ML DISP.SYRIN ONE ×2 (00:19→02:52)
[2017-12-20] MEDS ORDERED: ONDANSETRON 4 MG/2 ML VIAL ONE ×2 (00:19→02:52)
== END 2017-12-20 03:41 | disposition home or self-care (01) ==
LOC: JER 20:32
PROC: 3E033NZ Introduction of Analgesics, Hypnotics, Sedatives into Peripheral Vein, Percutaneous Approach (ICD-10-PCS; principal; 2017-12-19)
PROC: 3E033GC Introduction of Other Therapeutic Substance into Peripheral Vein, Percutaneous Approach (ICD-10-PCS; 2017-12-19)
DX: R10.9 Unspecified abdominal pain (principal); K74.60 Unspecified cirrhosis of liver; Z98.84 Bariatric surgery status
CPT/HCPCS: 36415; 71046-TC; 74177-TC; 80053; 81003; 81015; 82550; 83880; 84484; 84703; 85025; 99283-25

== ENCOUNTER 2018-01-30 16:01 | Emergency (ER) | payer OTHER ==
[2018-01-30 16:15] VITALS: BP 100/70; TEMP 97.7; BMI 91.7
[2018-01-30] MEDS ORDERED: traMADol HCL 50 MG TABLET PO ONE (16:45)
[2018-01-30] MEDS ORDERED: morphine CARPU-JECT 4 MG/1 ML DISP.SYRIN IVPUSH ONE (16:48)
[2018-01-30] MEDS ORDERED: morphine CARPU-JECT 4 MG/1 ML DISP.SYRIN IM ONE (16:48)
--- NOTE | 2018-01-30 16:56 | PDOC ---
History of Present Illness - General Chief Complaint: Injury Stated Complaint: FALL Time Seen by Provider: 01/30/18 16:18 History Source: Patient - History of Present Illness Occurred: reports: this morning Pain Location: reports: lower extremity Method of Injury: Yes: fall Past History - Past Medical History Allergies/Adverse Reactions: Allergies Allergy/AdvReac Type Severity Reaction Status Date / Time gabapentin Allergy Mild Itching Verified 01/30/18 16:08 Home Medications: Ambulatory Orders Rifaximin [Xifaxan] 550 mg PO DAILY 02/14/17 Spironolactone [Aldactone] 25 mg PO BID 02/14/17 Zolpidem Tartrate [Ambien] 10 mg PO HS #14 tablet MDD 10 02/15/17 Cholecalciferol (Vitamin D3) [Vitamin D3 -] 1,000 unit PO DAILY 12/19/17 Folic Acid - 1 mg PO DAILY 12/19/17 Nadolol [Corgard -] 20 mg PO ASDIR 12/19/17 Ondansetron [Zofran *Odt*] 4 mg SL TID #30 od.tablet 12/20/17 Oxycodone HCl [Roxicodone] 5 mg PO QID #21 tablet MDD 4 12/20/17 Lidocaine 5% Patch [Lidoderm Patch -] 1 patch TP DAILY #7 patch 01/30/18 Anemia: Yes Asthma: No Cancer: No Cardiac Disorders: No CVA: No COPD: No CHF: No Dementia: No Diabetes: No GI Disorders: Yes (liver cirrhosis (malnutrition)) Disorders: No HTN: No Hypercholesterolemia: No Kidney Stones: Yes Liver Disease: Yes (cirrhosis, no hepatitis, on transplant list) Seizures: No Thyroid Disease: No Other medical history: low BP - Surgical History Abdominal Surgery: Yes ( gastric bypass 2006) Appendectomy: No Cardiac Surgery: No Cholecystectomy: No GI Surgery: Yes (gastric bypass) Lung Surgery: No Neurologic Surgery: No Orthopedic Surgery: No - Reproductive History (#): 2 Para: 2 - Immunization History Immunization Up to Date: Yes - Suicide/Smoking/Psychosocial Hx Smoking Status: Yes Smoking History: Never smoked Have you smoked in the past 12 months: No Number of Cigarettes Smoked Daily: 3 If you are a former smoker, when did you quit?: 04/2015 Cigars Per Day: 0 Information on smoking cessation initiated: Yes 'Breaking Loose' booklet given: 01/30/18 Hx Alcohol Use: No Drug/Substance Use Hx: No Substance Use Type: None Hx Substance Use Treatment: No Trauma Specific PMHX - Complaint Specific PMHX Arthritis: No Review of Systems - Review of Systems Musculoskeletal: Yes: Back Pain. No: Joint Swelling, Neck Pain Neurological: No: Numbness, Tingling, Weakness *Physical Exam - Vital Signs Last Vital Signs Temp Pulse Resp BP Pulse Ox 97.7 F 114 H 19 100/70 99 01/30/18 16:03 01/30/18 16:03 01/30/18 16:03 01/30/18 16:03 01/30/18 16:03 - Physical Exam General Appearance: Yes: Appropriately Dressed, Mild Distress HEENT: positive: Normal Voice Neck: positive: Supple. negative: Tender, Decreased range of motion Respiratory/Chest: negative: Respiratory Distress Gastrointestinal/Abdominal: positive: Soft. negative: Tender Musculoskeletal: positive: Normal Inspection, Vertebral Tenderness Extremity: positive: Normal Inspection, Normal Range of Motion. negative: Tender, Swelling Integumentary: positive: Dry, Warm Neurologic: positive: Fully Oriented, Alert, Normal Mood/Affect, Motor Strength 5/ ED Treatment Course - RADIOLOGY Radiology Studies Ordered: Category Date Time Status FEMUR-RIGHT [RAD] Stat Radiology 01/30/18 16:50 Ordered SPINE-LUMBAR SACRAL [RAD] Stat Radiology 01/30/18 16:45 Ordered Medical Decision Making - Medical Decision Making 01/30/18 16:57 32-year-old female, morbid obesity, status post gastric bypass, alcoholic cirrhosis, endorses history of chronic back pain with multiple herniated discs to LS spine, neuropathy of bilateral lower extremity and ambulates with cane at baseline, here with lower back and right thigh pain after multiple falls this a.m. While walking in inclement weather, pt states she slipped and fell multiple times, landing on back at one point. Denies hitting head or LOC . Denies headache, dizziness or visual changes. No neck pain. No saddle anesthesia , bowel or bladder incontinence or lower extremity weakness. See exam Acute on chronic LBP 2/2 fall No red flags at this time -XR -pain control R rhigh injury No swelling/deformity M/l MSK Pt insistent upon XR though aware fx unlikely 01/30/18 17:29 Regarding pain control, pt unable to tolerate motrin and tylenol 2/2 cirrhosis. Per discussion with ED attending, one dose toradol at the lower spectrum of dosing is usually tolerable in cirrhotic pt (no h/o renal failure, nl Cr based on chart review). Patient informed of this, but still declining meds. Offered a dose of Ultram here, which patient again declines. States she cant tolerate meds but again unable to explain why. States she is allergic to gabapentin only but based on chart review, not true allergy, mostly side effects. States she is usually given morphine or dilaudid. Xrays neg for fx today. I explained to patient that xrays are negative for fracture and that her injuries which is most likely muscular in nature and that narcotics are usually not indicated for most injuries of this kind. At some point she accepted toradol and lidoderm patch and was sent home w/ rx for lidoderm patch *DC/Admit/Observation/Transfer Diagnosis at time of Disposition: Back sprain Thigh sprain Qualifiers: Encounter type: initial encounter Laterality: right Qualified Code(s): S73.101A - Unspecified sprain of right hip, initial encounter - Discharge Dispostion Disposition: HOME - Prescriptions Prescriptions: Lidocaine 5% Patch [Lidoderm Patch -] 1 patch TP DAILY #7 patch - Referrals - Patient Instructions Printed Discharge Instructions: DI for Back Strain or Sprain Additional Instructions: Your xrays are normal You most likely sustained muscle injury Use lidoderm patches as directed and follow up with your PMD - Post Discharge Activity
[2018-01-30] MEDS ORDERED: LIDOCAINE 5% TOPICAL PATCH TP ONE (17:28)
[2018-01-30] MEDS ORDERED: KETOROLAC TROMETHAMINE 30 MG/1 ML VIAL IM ONE (17:28)
[2018-01-30] MEDS ORDERED: LIDOCAINE 5% TOPICAL PATCH ONE (17:33)
[2018-01-30] MEDS ORDERED: KETOROLAC TROMETHAMINE 30 MG/1 ML VIAL ONE (17:33)
[2018-01-30 17:57] VITALS: PULSE 91
[2018-01-30] MEDS ORDERED: LIDOCAINE PATCH REMOVAL MC SCH (22:00)
== END 2018-01-30 17:56 | disposition home or self-care (01) ==
LOC: JERFT 16:01
PROC: 3E0233Z Introduction of Anti-inflammatory into Muscle, Percutaneous Approach (ICD-10-PCS; principal; 2018-01-30)
DX: S73.101A Unspecified sprain of right hip, initial encounter (principal); X58.XXXA Exposure to other specified factors, initial encounter; Y93.89 Activity, other specified; Y92.9 Unspecified place or not applicable; Z98.84 Bariatric surgery status; K74.60 Unspecified cirrhosis of liver; I95.9 Hypotension, unspecified; Z87.891 Personal history of nicotine dependence
CPT/HCPCS: 72100-TC-FY; 73552-TC-RT-FY; 99281-25

== ENCOUNTER 2018-05-20 00:03 | Inpatient (IN) | payer OTHER ==
--- NOTE | 2018-05-20 00:26 | PDOC ---
History of Present Illness - General History Source: Patient Exam Limitations: No Limitations - History of Present Illness Initial Comments: 05/20/18 00:44 The patient is a 32 year old female with a significant past medical history of neuropathy, gallstones, and stage 4 liver cirrhosis who presents to the ED with complaints of 2 months of vaginal bleeding and 1 month of flank pain. The patient reports 2 months of constant vaginal bleeding. Patient has a history of irregular menstrual periods where she would get her menstrual period for several months and then not get her menstrual period for months. Patient also reports one month of intermittent right sided flank pain that radiates to her right lower quadrant and her right lower back. She states her flank pain is worsened with movement and will radiate to her epigastric and pelvic region. Patient was scheduled for an US on 05/17/18 but did not go to her appointment due to a family [place]. Patient had an endoscopy and colonoscopy in 2014, both unremarkable. Denies fever or chills. Denies nausea, vomiting, or diarrhea. Denies chest pain or shortness of breath. Denies any other symptoms. <Aguila Pantoja - Last Filed: 05/20/18 00:44> <Diamante Mcmahon - Last Filed: 05/20/18 16:41> - General Chief Complaint: Pain, Acute Stated Complaint: ABD PAIN/VAG BLEED Time Seen by Provider: 05/20/18 00:24 Past History <Aguila Pantoja - Last Filed: 05/20/18 00:44> - Past Medical History Anemia: Yes Asthma: No Cancer: No Cardiac Disorders: No CVA: No COPD: No CHF: No Dementia: No Diabetes: No GI Disorders: Yes (liver cirrhosis (malnutrition)) Disorders: No HTN: No Hypercholesterolemia: No Kidney Stones: Yes Liver Disease: Yes (cirrhosis, no hepatitis, on transplant list) Seizures: No Thyroid Disease: No - Surgical History Abdominal Surgery: Yes ( gastric bypass 2006) Appendectomy: No Cardiac Surgery: No Cholecystectomy: No GI Surgery: Yes (gastric bypass) Lung Surgery: No Neurologic Surgery: No Orthopedic Surgery: No - Reproductive History (#): 2 Para: 2 - Immunization History Immunization Up to Date: Yes - Suicide/Smoking/Psychosocial Hx Smoking Status: Yes Smoking History: Current every day smoker Have you smoked in the past 12 months: No Number of Cigarettes Smoked Daily: 3 If you are a former smoker, when did you quit?: 04/2015 Cigars Per Day: 0 Information on smoking cessation initiated: No 'Breaking Loose' booklet given: 01/30/18 Hx Alcohol Use: No Drug/Substance Use Hx: No Substance Use Type: None Hx Substance Use Treatment: No <LisandroSoloyaquelin Weaver - Last Filed: 05/20/18 16:41> - Past Medical History Allergies/Adverse Reactions: Allergies Allergy/AdvReac Type Severity Reaction Status Date / Time gabapentin Allergy Mild Itching Verified 05/20/18 00:19 Home Medications: Ambulatory Orders Rifaximin [Xifaxan] 550 mg PO DAILY 02/14/17 Spironolactone [Aldactone] 25 mg PO BID 02/14/17 Zolpidem Tartrate [Ambien] 10 mg PO HS #14 tablet MDD 10 02/15/17 Cholecalciferol (Vitamin D3) [Vitamin D3 -] 1,000 unit PO DAILY 12/19/17 Folic Acid - 1 mg PO DAILY 12/19/17 Nadolol [Corgard -] 20 mg PO ASDIR 12/19/17 Ondansetron [Zofran *Odt*] 4 mg SL TID #30 od.tablet 12/20/17 Oxycodone HCl [Roxicodone] 5 mg PO QID #21 tablet MDD 4 12/20/17 Lidocaine 5% Patch [Lidoderm Patch -] 1 patch TP DAILY #7 patch 01/30/18 Abd/GI Specific PMHX - Complaint Specific PMHX Hepatitis: No Pancreatitis: No <Diamante Mcmahon - Last Filed: 05/20/18 16:41> Review of Systems - Review of Systems Able to Perform ROS?: Yes Comments:: 05/20/18 00:45 CONSTITUTIONAL: Absent: fever, chills, diaphoresis, generalized weakness, malaise, loss of appetite HEENT: Absent: rhinorrhea, nasal congestion, throat pain, throat swelling, difficulty swallowing, mouth swelling, ear pain, eye pain, visual Changes CARDIOVASCULAR: Absent: chest pain, syncope, palpitations, irregular heart rate, lightheadedness , peripheral edema RESPIRATORY: Absent: cough, shortness of breath, dyspnea with exertion, orthopnea, wheezing, stridor, hemoptysis GASTROINTESTINAL: + abdominal pain, epigastric pain Absent: abdominal distension, nausea, vomiting, diarrhea, constipation, melena, hematochezia GENITOURINARY: + Vaginal bleeding, flank pain Absent: dysuria, frequency, urgency, hesitancy, genital pain MUSCULOSKELETAL: + back pain, pelvic pain Absent: joint swelling SKIN: Absent: rash, itching, pallor HEMATOLOGIC/IMMUNOLOGIC: Absent: easy bleeding, easy bruising, lymphadenopathy, frequent infections ENDOCRINE: Absent: unexplained weight gain, unexplained weight loss, heat intolerance, cold intolerance NEUROLOGIC: Absent: headache, focal weakness or paresthesias, dizziness, unsteady gait, seizure, mental status changes, bladder or bowel incontinence PSYCHIATRIC: Absent: anxiety, depression, suicidal or homicidal ideation, hallucinations. All Other Systems: Reviewed and Negative <Aguila Pantoja - Last Filed: 05/20/18 00:44> *Physical Exam - Vital Signs Last Vital Signs Temp Pulse Resp BP Pulse Ox 98.9 F 109 H 22 111/95 98 05/20/18 00:19 05/20/18 00:19 05/20/18 00:19 05/20/18 00:19 05/20/18 00:19 - Physical Exam Comments: 05/20/18 00:45 GENERAL: Well developed, well nourished. Awake and alert. No acute distress. HEENT: Normocephalic, atraumatic. PERRLA, EOMI. No conjunctival pallor. Sclera are non- icteric. Moist mucous membranes. Oropharynx is clear. NECK: Supple. Full ROM. No JVD. Carotid pulses 2+ and symmetric, without bruits. No thyromegaly. No lymphadenopathy. CARDIOVASCULAR: Regular rate and rhythm. No murmurs, rubs, or gallops. Distal pulses are 2+ and symmetric. PULMONARY: No evidence of respiratory distress. Lungs clear to auscultation bilaterally. No wheezing, rales or rhonchi. ABDOMINAL: Soft. Non-tender. Non-distended. No rebound or guarding. No organomegaly. Normoactive bowel sounds. MUSCULOSKELETAL Normal range of motion at all joints. No bony deformities or tenderness. No CVA tenderness. EXTREMITIES: No cyanosis. No clubbing. No edema. No calf tenderness. SKIN: Warm and dry. Normal capillary refill. No rashes. No jaundice. NEUROLOGICAL: Alert, awake, appropriate. Cranial nerves 2-12 intact. No deficits to light touch and temperature in face, upper extremities and lower extremities. No motor deficits in the in face, upper extremities and lower extremities. Normoreflexic in the upper and lower extremities. Normal speech. Toes are down- going bilaterally. Gait is normal without ataxia. PSYCHIATRIC: Cooperative. Good eye contact. Appropriate mood and affect. <Aguila Pantoja - Last Filed: 05/20/18 00:44> - Vital Signs Last Vital Signs Temp Pulse Resp BP Pulse Ox 98.9 F 109 H 22 111/95 98 05/20/18 00:19 05/20/18 00:19 05/20/18 00:19 05/20/18 00:19 05/20/18 00:19 <Diamante Mcmahon - Last Filed: 05/20/18 16:41> ED Treatment Course - LABORATORY CBC & Chemistry Diagram: 05/20/18 06:35 05/20/18 06:35 <Diamante Mcmahon - Last Filed: 05/20/18 16:41> *DC/Admit/Observation/Transfer - Attestations Scribe Attestion: 05/20/18 00:46 Documentation prepared by Aguila Pantoja, acting as medical advisor for Diamante Mcmahon MD <Aguila Pantoja - Last Filed: 05/20/18 00:44> <Diamante Mcmahon - Last Filed: 05/20/18 16:41> Diagnosis at time of Disposition: Abdominal pain, Cholelithiasis - Discharge Dispostion Condition at time of disposition: Stable
[2018-05-20] MEDS ORDERED: SODIUM CHLORIDE 1,000 ML IV STA (00:34)
[2018-05-20] MEDS ORDERED: morphine CARPU-JECT 2 MG/1 ML DISP.SYRIN IVPUSH ONE ×2 (00:46→09:12)
[2018-05-20 01:00] LABS: BASO % 1.4 % (0-2.0); EOS % 2.3 % (0-4.5); HEMATOCRIT 38.5 % (32.4-45.2); HEMOGLOBIN 12.8 GM/dL (10.7-15.3); LYMPH % 24.8 % (8-40); MCHC 33.3 g/dl (32.0-36.0); MEAN PLT VOLUME 8.8 fl (7.5-11.1); MONO % 7.4 % (3.8-10.2); NEUT % 64.1 % (42.8-82.8); PLATELET COUNT 181 K/MM3 (134-434); RBC 3.77 M/mm3 (3.60-5.2); RDW 16.6 % (11.6-15.6); WHITE BLOOD COUNT 5.5 K/mm3 (4.0-10.0)
[2018-05-20] MEDS ORDERED: MORPHINE SULFATE 2 MG/ML VIAL ONE ×8 (01:12→21:21)
[2018-05-20 01:32] LABS: URINE APPEARANCE CLEAR; URINE BILIRUBIN NEGATIVE (<2.0 mg/dL); URINE COLOR LTYELLOW; URINE GLUCOSE (UA) NEGATIVE (NEGATIVE); URINE KETONE NEGATIVE (NEGATIVE); URINE LEUK ESTERASE NEGATIVE (NEGATIVE); URINE NITRITE NEGATIVE (NEGATIVE); URINE PROTEIN NEGATIVE (NEGATIVE); URINE UROBILINOGEN NEGATIVE mg/dL (0.2-1.0)
[2018-05-20] MEDS ORDERED: KETOROLAC TROMETHAMINE 30 MG/1 ML VIAL IVPUSH ONE (01:36)
[2018-05-20] MEDS ORDERED: KETOROLAC TROMETHAMINE 30 MG/1 ML VIAL ONE (01:41)
[2018-05-20 01:44] LABS: EPI CELLS RARE /HPF (FEW); URINE MUCUS RARE
[2018-05-20 02:17] LABS: ALBUMIN 2.6 g/dl (3.4-5.0); ANION GAP 10 (8-16); BLOOD UREA NITROGEN 4 mg/dL (7-18); CALCIUM 7.8 mg/dL (8.5-10.1); CHLORIDE 107 mmol/L (98-107); CO2 23 mmol/L (21-32); CREATININE 0.5 mg/dL (0.55-1.02); GLUCOSE,RANDOM 89 mg/dL (74-106); POTASSIUM 3.9 mmol/L (3.5-5.1); SGOT/AST 81 U/L (15-37); SGPT/ALT 44 U/L (12-78); SODIUM 140 mmol/L (136-145)
[2018-05-20 02:19] LABS: ALK PHOS 353 U/L (45-117); BILIRUBIN,TOTAL 0.4 mg/dL (0.2-1.0); TOT PROT 6.8 g/dl (6.4-8.2)
[2018-05-20] MEDS ORDERED: morphine CARPU-JECT 4 MG/1 ML DISP.SYRIN IVPUSH ONE (03:31)
--- NOTE | 2018-05-20 04:39 | PDOC ---
*Physical Exam - Vital Signs Last Vital Signs Temp Pulse Resp BP Pulse Ox 98.9 F 109 H 22 111/95 98 05/20/18 00:19 05/20/18 00:19 05/20/18 00:19 05/20/18 00:19 05/20/18 00:19 ED Treatment Course - LABORATORY CBC & Chemistry Diagram: 05/20/18 06:35 05/20/18 06:35 - ADDITIONAL ORDERS Additional order review: Laboratory Results 05/20/18 05/20/18 05/20/18 01:20 01:20 01:20 Sodium 140 Potassium 3.9 Chloride 107 Carbon Dioxide 23 Anion Gap 10 BUN 4 L Creatinine 0.5 L Creat Clearance w eGFR > 60 Random Glucose 89 Calcium 7.8 L Total Bilirubin 0.4 AST 81 H ALT 44 Alkaline Phosphatase 353 H Total Protein 6.8 Albumin 2.6 L Lipase 114 Serum , Qual Urine Color Ltyellow Urine Appearance Clear Urine pH 5.0 Ur Specific [place] 1.008 Urine Protein Negative Urine Glucose (UA) Negative Urine Ketones Negative Urine Blood 2+ H Urine Nitrite Negative Urine Bilirubin Negative Urine Urobilinogen Negative Ur Leukocyte Esterase Negative Urine WBC (Auto) <1 Urine RBC (Auto) 1 Ur Epithelial Cells Rare Urine Mucus Rare Urine HCG, Qual 05/20/18 05/20/18 05/20/18 01:20 00:40 00:40 Sodium Cancelled Potassium Cancelled Chloride Cancelled Carbon Dioxide Cancelled Anion Gap Cancelled BUN Cancelled Creatinine Cancelled Creat Clearance w eGFR Cancelled Random Glucose Cancelled Calcium Cancelled Total Bilirubin Cancelled AST Cancelled ALT Cancelled Alkaline Phosphatase Cancelled Total Protein Cancelled Albumin Cancelled Lipase Cancelled Serum , Qual Negative Urine Color Urine Appearance Urine pH Ur Specific [place] Urine Protein Urine Glucose (UA) Urine Ketones Urine Blood Urine Nitrite Urine Bilirubin Urine Urobilinogen Ur Leukocyte Esterase Urine WBC (Auto) Urine RBC (Auto) Ur Epithelial Cells Urine Mucus Urine HCG, Qual Negative 05/20/18 00:40 RBC 3.77 MCV 102.0 H MCHC 33.3 RDW 16.6 H MPV 8.8 D Neutrophils % 64.1 Lymphocytes % 24.8 D Monocytes % 7.4 Eosinophils % 2.3 Basophils % 1.4 - Medications Given in the ED: ED Medications Discontinued Medications Generic Name Dose Route Start Last Admin Trade Name Freq PRN Reason Stop Dose Admin Sodium Chloride 1,000 mls @ 1,000 mls/hr 05/20/18 00:34 05/20/18 00:43 Normal Saline - IV 05/20/18 01:33 1,000 mls/hr ASDIR STA Administration Ketorolac Tromethamine 30 mg 05/20/18 01:36 05/20/18 01:43 Toradol Injection - IVPUSH 05/20/18 01:37 30 mg ONCE ONE Administration Morphine Sulfate 2 mg 05/20/18 00:46 05/20/18 01:20 Morphine Injection - IVPUSH 05/20/18 00:47 2 mg ONCE ONE Administration Morphine Sulfate 4 mg 05/20/18 03:31 05/20/18 04:28 Morphine Injection - IVPUSH 05/20/18 03:32 4 mg ONCE ONE Administration Medical Decision Making - Medical Decision Making 05/20/18 04:30 Care received at [facility] [facility] with cholelithiasis. PT reporting persistent pain despite morphine and toradol Will dose morphine and admit for intractable pain and US/Surg c/s in AM Case discussed with Dr. Yates, pt admitted to Dr. Cano Case discussed in detail with admitting physician including history, physical exam and ancillary studies. Admitting physician has assumed care for the patient, will follow all pending diagnostics and will complete the evaluation and treatment. *DC/Admit/Observation/Transfer Diagnosis at time of Disposition: Abdominal pain, Cholelithiasis - Discharge Dispostion Condition at time of disposition: Stable Decision to Admit order: Yes - Referrals - Patient Instructions - Post Discharge Activity - Attestations Physician Attestion: 05/20/18 04:40 I, Dr. Jordan Holland MD, attest that this document has been prepared under my direction and personally reviewed by me in its entirety. I further attest, that it accurately reflects all work, treatment, procedures and medical decision -making performed by me.
--- NOTE | 2018-05-20 05:17 | PN ---
Teaching Attending Note Name of Resident: Dieter Mcneil ATTENDING PHYSICIAN STATEMENT I saw and evaluated the patient. I reviewed the resident's note and discussed the case with the resident. I agree with the resident's findings and plan as documented. 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 Intermittent right sided flank pain radiates to her right lower quadrant and her right lower back and is worsened by movement. She has a history of irregular menstrual periods but has not seen a [employer] in over 1 year. She has had a copper IUD for 9 years . Was scheduled for an US on 05/17/18 but did not go to her appointment due to a family issues. EGD and colonoscopy in 2014 were both negative. She has "difficulty" swallowing but says she has gained 40 pounds recently. She denies fever, chills, nausea, vomiting, change in bowel habits, chest pain or SOB. She got treated with IV Morphine and Toradol in the ER but pain persists. OBJECTIVE: Alert and in no acute distress. Morbidly obese. Vital Signs Period Temp Pulse Resp BP Sys/Morris Pulse Ox Last 24 Hr 98.9 F 109 22 111/95 98 HEENT: No Jaundice, eye redness or discharge, PERRLA, EOMI. Normocephalic, atraumatic. External ears are normal and hearing is grossly intact. No nasal discharge. Neck: Supple, nontender. No palpable adenopathy or thyromegaly. No JVD Chest: Good effort. Clear to auscultation and percussion. Heart: Regular. No S3, rub or murmur Abdomen: Not distended, soft, right flank tenderness; no HSM. No rebound or guarding. Normoactive bowel sounds. Ext: Peripheral pulses intact. No leg edema. Skin: Warm and dry. No petechiae, rash or ecchymosis. Neuro: Alert. Oriented x3. CN 2-12 grossly intact. Sensation grossly intact in all four extremities and DTR are symmetric. Current Medications Generic Name Dose Route Start Last Admin Trade Name Freq PRN Reason Stop Dose Admin Acetaminophen 650 mg 05/20/18 05:49 Tylenol - PO Q4H PRN PAIN LEVEL 1-6 Heparin Sodium (Porcine) 5,000 unit 05/20/18 06:00 Heparin - SQ TID MARTHA Morphine Sulfate 2 mg 05/20/18 05:49 Morphine Sulfate IVPUSH Q4H PRN PAIN LEVEL 7 - 10 Home Medications Medication Instructions Recorded Rifaximin [Xifaxan] 550 mg PO DAILY 02/14/17 Spironolactone [Aldactone] 25 mg PO BID 02/14/17 Zolpidem Tartrate [Ambien] 10 mg PO HS #14 tablet MDD 10 02/15/17 Cholecalciferol (Vitamin D3) 1,000 unit PO DAILY 12/19/17 [Vitamin D3 -] Folic Acid - 1 mg PO DAILY 12/19/17 Nadolol [Corgard -] 20 mg PO ASDIR 12/19/17 Ondansetron [Zofran *Odt*] 4 mg SL TID #30 od.tablet 12/20/17 Oxycodone HCl [Roxicodone] 5 mg PO QID #21 tablet MDD 4 12/20/17 Lidocaine 5% Patch [Lidoderm Patch 1 patch TP DAILY #7 patch 01/30/18 -] Abnormal Lab Results 05/20/18 05/20/18 05/20/18 00:40 01:20 01:20 MCV 102.0 H MCH 34.0 H D RDW 16.6 H BUN 4 L Creatinine 0.5 L Calcium 7.8 L AST 81 H Alkaline Phosphatase 353 H Albumin 2.6 L Urine Blood 2+ H ASSESSMENT AND PLAN: 1. Abdominal pain - CT abdomen and pelvis showed distended gallbladder with gall stones. Her tachycardia and tachypnea on presentation indicate that her pain is real. No evidence of CBD obstruction or cholecystitis, but gall bladder colic is a likely culprit. Will continue pain control with morphine and consult GI and surgery. Will get sonogram of the upper abdomen. CT of the abdomen did not show kidney stones though she has hematuria - repeat straight cath urinalysis. 2. Vaginal spotting - Patient needs [employer] evaluation since endometriosis is a potential cause for her pain. Also, she may need to remove the copper IUD she has had for 9 years since that may be the cause of her spotting. 3. "Dysphagia" and Weight gain - Will benefit from barium swallow and check TFTs. Also sex hormonal derangement associated with menstrual dysfucntion or adrenal dysfunction may be to blame for her weight gain. 4. Macrocytosis - May signal folate or B12 deficiency in view of gastric bypass surgery or it could mean surreptitious alcohol use. Check B12 and folate levels. 5. DVT prophylaxis - Heparin 5000u sq tid. 6. Advance directives - Full code
[2018-05-20] MEDS ORDERED: ACETAMINOPHEN 325 MG TABLET (FP) PO PRN (05:49)
--- NOTE | 2018-05-20 06:17 | HP ---
CHIEF COMPLAINT: abdominal pain PCP: none HISTORY OF PRESENT ILLNESS: 32F w/ hx of cholelithiasis, nephrolithiasis, cirrhosis?, gastric bypass, neuropathy, depression, anemia, sleep apnea on CPAP, and DM? who presents with chronic abdominal pain. Pt states that she has had a month of intermittent right sided abdominal pain, throbbing/stabbing in quality, severe, radiating in belt-like fashion around abdomen and back, and mildly relieved by warm compresses and positioning. Pt endorses fatigue, lightheadedness, cold sweats, mild headache, insomnia, and apnea. She also endorses a 40 pound weight gain in the past 2.5 months despite having difficulty swallowing solids due to gagging. She denies odynophagia and a feeling of the food getting stuck in her throat. Per records, she had a normal endocoscopy and colonoscopy in 2014. Pt denies taking any medications for past year. Her last PCP was Dr. Hinojosa, who recently , and she hasn't seen him in 10 months. She has seen Dr. Rivas, GI, in past as well as Dr. Moran, liver specialist. Pt states that she was diagnosed with cirrhosis in around 2014, but was told "she doesn't really have it anymore." Pt denies chest pain, SOB, nausea, emesis, diarrhea, constipation, dysuria, urgency, frequency, vaginal discharge, fevers, and chills. ER course was notable for: (1) history, exam (2) imaging (3) labs Recent Travel: PAST MEDICAL HISTORY: cholelithiasis, nephrolithiasis, cirrhosis?, gastric bypass, neuropathy, depression, anemia, sleep apnea on CPAP, and DM? PAST SURGICAL HISTORY: gastric bypass in 2006 Social History: Smokin cig/day since age 22 Alcohol: currently just social. endorses a 2 year hx where she drank 1 bottle of wine 3-4 days a week Drugs: denies Pt lives with 2 children in [place]. 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 She has not been sexually active for several years. She has a copper IUD that was placed 9 years ago. She normally has irregular periods once every few months with 3 days of light spotting. No hx of STDs. . Family History: mother- thyroid problem, bipolar father- cancer, Allergies gabapentin Allergy (Mild, Verified 05/20/18 00:19) Itching Pateint states she was on neurontin and taen off because it made her itch. Her PMD is aware as per Pt. She cannot recall dosage or other meds that were causing her itching. HOME MEDICATIONS: Home Medications Medication Instructions Recorded Rifaximin [Xifaxan] 550 mg PO DAILY 02/14/17 Spironolactone [Aldactone] 25 mg PO BID 02/14/17 Zolpidem Tartrate [Ambien] 10 mg PO HS #14 tablet MDD 10 02/15/17 Cholecalciferol (Vitamin D3) 1,000 unit PO DAILY 12/19/17 [Vitamin D3 -] Folic Acid - 1 mg PO DAILY 12/19/17 Nadolol [Corgard -] 20 mg PO ASDIR 12/19/17 Ondansetron [Zofran *Odt*] 4 mg SL TID #30 od.tablet 12/20/17 Oxycodone HCl [Roxicodone] 5 mg PO QID #21 tablet MDD 4 12/20/17 Lidocaine 5% Patch [Lidoderm Patch 1 patch TP DAILY #7 patch 01/30/18 -] REVIEW OF SYSTEMS CONSTITUTIONAL: Absent: fever, chills, diaphoresis, , malaise, loss of appetite, weight change present: generalized weakness HEENT: Absent: rhinorrhea, nasal congestion, throat pain, throat swelling, difficulty swallowing, mouth swelling, ear pain, eye pain, visual changes CARDIOVASCULAR: Absent: chest pain, syncope, palpitations, irregular heart rate,, peripheral edema present: lightheadedness RESPIRATORY: Absent: cough, shortness of breath, dyspnea with exertion, orthopnea, wheezing, stridor, hemoptysis GASTROINTESTINAL: Absent: abdominal distension, nausea, vomiting, diarrhea, constipation, melena , hematochezia present: abdominal pain, GENITOURINARY: Absent: dysuria, frequency, urgency, hesitancy, hematuria, genital pain MUSCULOSKELETAL: Absent: myalgia, arthralgia, joint swelling, back pain, neck pain SKIN: Absent: rash, itching, pallor HEMATOLOGIC/IMMUNOLOGIC: Absent: easy bruising, lymphadenopathy, frequent infections present: metrorrhagia ENDOCRINE: Absent: heat intolerance, cold intolerance NEUROLOGIC: Absent: focal weakness or paresthesias, dizziness, unsteady gait, seizure, mental status changes, bladder or bowel incontinence present: heaDACHE PSYCHIATRIC: Absent: anxiety, depression, suicidal or homicidal ideation, hallucinations. PHYSICAL EXAMINATION Vital Signs - 24 hr 05/20/18 00:19 Temperature 98.9 F Pulse Rate 109 H Respiratory 22 Rate Blood Pressure 111/95 O2 Sat by Pulse 98 Oximetry (%) GENERAL: young, obese female, awake, alert, and fully oriented, in minimal distress. HEENT: no scleral icterus LUNGS: Breath sounds equal, clear to auscultation bilaterally. No wheezes, and no crackles. No accessory muscle use. HEART: Regular rate and rhythm, normal S1 and S2 without murmur, rub or gallop. Back: minimal b/l CVA tenderness ABDOMEN: obese abdomen. normoactive BS, minimally tender diffusely, ND, no organomegaly. MUSCULOSKELETAL: No peripheral edema NEUROLOGICAL: Cranial nerves II-XII intact. Normal speech Laboratory Results - last 24 hr 05/20/18 05/20/18 05/20/18 00:40 00:40 00:40 WBC 5.5 RBC 3.77 Hgb 12.8 Hct 38.5 MCV 102.0 H MCH 34.0 H D MCHC 33.3 RDW 16.6 H Plt Count 181 MPV 8.8 D Absolute Neuts (auto) 3.5 Neutrophils % 64.1 Lymphocytes % 24.8 D Monocytes % 7.4 Eosinophils % 2.3 Basophils % 1.4 Nucleated RBC % 0 Sodium Cancelled Potassium Cancelled Chloride Cancelled Carbon Dioxide Cancelled Anion Gap Cancelled BUN Cancelled Creatinine Cancelled Creat Clearance w eGFR Cancelled Random Glucose Cancelled Calcium Cancelled Total Bilirubin Cancelled AST Cancelled ALT Cancelled Alkaline Phosphatase Cancelled Total Protein Cancelled Albumin Cancelled Lipase Cancelled Serum , Qual Negative Urine Color Urine Appearance Urine pH Ur Specific [place] Urine Protein Urine Glucose (UA) Urine Ketones Urine Blood Urine Nitrite Urine Bilirubin Urine Urobilinogen Ur Leukocyte Esterase Urine WBC (Auto) Urine RBC (Auto) Ur Epithelial Cells Urine Mucus Urine HCG, Qual 05/20/18 05/20/18 05/20/18 01:20 01:20 01:20 WBC RBC Hgb Hct MCV MCH MCHC RDW Plt Count MPV Absolute Neuts (auto) Neutrophils % Lymphocytes % Monocytes % Eosinophils % Basophils % Nucleated RBC % Sodium 140 Potassium 3.9 Chloride 107 Carbon Dioxide 23 Anion Gap 10 BUN 4 L Creatinine 0.5 L Creat Clearance w eGFR > 60 Random Glucose 89 Calcium 7.8 L Total Bilirubin 0.4 AST 81 H ALT 44 Alkaline Phosphatase 353 H Total Protein 6.8 Albumin 2.6 L Lipase Serum , Qual Urine Color Ltyellow Urine Appearance Clear Urine pH 5.0 Ur Specific [place] 1.008 Urine Protein Negative Urine Glucose (UA) Negative Urine Ketones Negative Urine Blood 2+ H Urine Nitrite Negative Urine Bilirubin Negative Urine Urobilinogen Negative Ur Leukocyte Esterase Negative Urine WBC (Auto) <1 Urine RBC (Auto) 1 Ur Epithelial Cells Rare Urine Mucus Rare Urine HCG, Qual Negative 05/20/18 01:20 WBC RBC Hgb Hct MCV MCH MCHC RDW Plt Count MPV Absolute Neuts (auto) Neutrophils % Lymphocytes % Monocytes % Eosinophils % Basophils % Nucleated RBC % Sodium Potassium Chloride Carbon Dioxide Anion Gap BUN Creatinine Creat Clearance w eGFR Random Glucose Calcium Total Bilirubin AST ALT Alkaline Phosphatase Total Protein Albumin Lipase 114 Serum , Qual Urine Color Urine Appearance Urine pH Ur Specific [place] Urine Protein Urine Glucose (UA) Urine Ketones Urine Blood Urine Nitrite Urine Bilirubin Urine Urobilinogen Ur Leukocyte Esterase Urine WBC (Auto) Urine RBC (Auto) Ur Epithelial Cells Urine Mucus Urine HCG, Qual CT abdomen/pelvis: distended gallbladder, gallstones, no inflammation, no CBD dilation, no other pathology ASSESSMENT/PLAN: 32F w/ hx of cholelithiasis, nephrolithiasis, cirrhosis?, gastric bypass, neuropathy, depression, anemia, sleep apnea on CPAP, and DM? who presents with chronic abdominal pain. #right abdominal/flank pain -possibly 2/2 cholelithiasis or nephrolithiasis (not visible on CT). r/o cholecystitis w/ RUQ. -f/u RUQ US -pain control with APAP and morphine -GI consulted, Dr. Jackson, f/u recs -surgery consulted, Dr. Murphy, f/u recs #metrorrhagia -OBGYN consulted, f/u recs -f/u transvaginal US #hematuria -possibly from vaginal bleeding vs. kidney stone -Urology consulted, Dr. Pelayo, f/u recs #LFT abnormalities -AST of 81, ALP of 353 -explained by hx of cirrhosis. Pt not taking any meds for anything in last year. -f/u GI recs #morbid obesity -encourage diet and exercise -hx of gastric bypass #macrocytic anemia -explained by cirrhosis -Hgb of 12.8 #DM -f/u Hgba1c, lipid panel, TSH -pt states that she "used to have DM, but not anymore" #difficulty swallowing solids -f/u barium swallow w/ small bowel follow through -GI on board, f/u recs #sleep apnea -continue home CPAP #FEN/ppx -no IVF -electrolytes wnl -diabetic diet -no GI ppx indicated -heparin #dispo -admit to med/surg -Case discussed with attending, Dr. Cano. -Dieter Mcneil MD PGY1 Visit type - Emergency Visit Emergency Visit: Yes Care time: The patient presented to the Emergency Department on the above date and was hospitalized for further evaluation of their emergent condition. - New Patient This patient is new to me today: Yes Date on this admission: 05/20/18 - Critical Care Critical Care patient: No Hospitalist Screening - Colonoscopy Questionnaire Colonoscopy Questionnaire: Colonoscopy Questionnaire - Patient: 50 - 75 years old and never had a screening colonoscopy: Unknown History of colon or rectal polyps, or CA: Unknown History of IBD, Crohn's disease or UC: Unknown History of abdominal radiation therapy as a child: Unknown - Relative: 1 with colon or rectal CA, or polyps at age 60 or younger: Unknown Colon or rectal CA diagnosed at age 45 or younger: Unknown Multiple relatives with colon or rectal CA: Unknown - Outcome: Screening Result: Negative Screen
[2018-05-20 06:45] LABS: BASO % 1.6 % (0-2.0); EOS % 2.6 % (0-4.5); HEMATOCRIT 36.3 % (32.4-45.2); LYMPH % 35.4 % (8-40); MCH 34.2 pg (25.7-33.7); MCHC 33.1 g/dl (32.0-36.0); MEAN CELL VOLUME 103.3 fl (80-96); MEAN PLT VOLUME 8.4 fl (7.5-11.1); MONO % 8.1 % (3.8-10.2); NEUT % 52.3 % (42.8-82.8); PLATELET COUNT 142 K/MM3 (134-434); RBC 3.52 M/mm3 (3.60-5.2); RDW 16.2 % (11.6-15.6); WHITE BLOOD COUNT 4.2 K/mm3 (4.0-10.0)
[2018-05-20] MEDS ORDERED: HEPARIN NA (PORCINE) 5,000 UNITS/ML 1ML VIAL ONE (06:46)
[2018-05-20] MEDS: MORPHINE SULFATE 2 MG/ML VIAL IVPUSH PRN ×2 (06:57→12:22)
[2018-05-20] MEDS: HEPARIN NA (PORCINE) 5,000 UNITS/ML 1ML VIAL SQ SCH ×3 (06:57→22:31)
[2018-05-20 07:15] LABS: ALBUMIN 2.5 g/dl (3.4-5.0); ANION GAP 9 (8-16); BILIRUBIN,TOTAL 0.5 mg/dL (0.2-1.0); BLOOD UREA NITROGEN 4 mg/dL (7-18); CALCIUM 7.5 mg/dL (8.5-10.1); CHLORIDE 108 mmol/L (98-107); CO2 25 mmol/L (21-32); CREATININE 0.6 mg/dL (0.55-1.02); GLUCOSE,RANDOM 84 mg/dL (74-106); SGOT/AST 66 U/L (15-37); SGPT/ALT 38 U/L (12-78); SODIUM 142 mmol/L (136-145); TOT PROT 6.4 g/dl (6.4-8.2)
[2018-05-20 07:16] LABS: ALK PHOS 347 U/L (45-117)
[2018-05-20 07:21] LABS: INR 1.09 (0.82-1.09); PROTHROMBIN TIME (PATIENT) 12.3 SEC (9.7-13.0)
[2018-05-20 07:24] LABS: ACTIVATED PTT 22.6 SECONDS (25.2-36.5)
--- NOTE | 2018-05-20 07:44 | CONSULT ---
Consult Consult Specialty:: general surgery Referred by:: Ewa WITT Reason for Consultation:: cholelithiasis and colic - History of Present Illness Chief Complaint: RUQ abdominal pain - History Source History Provided By: Patient, Medical Record Limitations to Obtaining History: No Limitations - Past Medical History ...LMP: 01/21/17 - Alcohol/Substance Use Hx Alcohol Use: No - Smoking History Smoking history: Current every day smoker Have you smoked in the past 12 months: No Aproximately how many cigarettes per day: 3 If you are a former smoker, when did you quit?: 04/2015 Home Medications - Allergies Allergies/Adverse Reactions: Allergies Allergy/AdvReac Type Severity Reaction Status Date / Time gabapentin Allergy Mild Itching Verified 05/20/18 00:19 - Home Medications Home Medications: Ambulatory Orders Rifaximin [Xifaxan] 550 mg PO DAILY 02/14/17 Spironolactone [Aldactone] 25 mg PO BID 02/14/17 Zolpidem Tartrate [Ambien] 10 mg PO HS #14 tablet MDD 10 02/15/17 Cholecalciferol (Vitamin D3) [Vitamin D3 -] 1,000 unit PO DAILY 12/19/17 Folic Acid - 1 mg PO DAILY 12/19/17 Nadolol [Corgard -] 20 mg PO ASDIR 12/19/17 Ondansetron [Zofran *Odt*] 4 mg SL TID #30 od.tablet 12/20/17 Oxycodone HCl [Roxicodone] 5 mg PO QID #21 tablet MDD 4 12/20/17 Lidocaine 5% Patch [Lidoderm Patch -] 1 patch TP DAILY #7 patch 01/30/18 Family Disease History - Family Disease History Family Disease History: Diabetes: Mother (thyroid bipolar), CA: Father ( ), Other: Mother, Sister (thyroid) Physical Exam Vital Signs: Vital Signs Temperature 98.9 F 05/20/18 00:19 Pulse Rate 109 H 05/20/18 00:19 Respiratory Rate 22 05/20/18 00:19 Blood Pressure 111/95 05/20/18 00:19 O2 Sat by Pulse Oximetry (%) 97 05/20/18 06:37 Labs: CBC, BMP 05/20/18 06:35 05/20/18 06:35
--- NOTE | 2018-05-20 09:04 | CON.OBG ---
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 no c/o diarrhea or constipation . PT is Known c/o nephrolithiasis, cholelithiasis, cirrhosis of liver ,gastric by pass, , sleep apnea on cpap History of Present Illness: pt ststes she has off & on pain for past sometime , but severe since yesterday . 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 Before 2 Months Pa MH : for 1 year : cycle infrequent 4-6 months x 3 days bleeding PA MH 2 yrs prior 28-60 days x 4 days bleeding , mild cramps , no meds Pa Mh > 3 yrs ago regular cycle x 28-35 days . pt not sexually active for 1 year h/o Contraception Paragard IUD inserted 2 yrs ago at [facility] office Last pap 2 yrs ago no ho abn pap no h/o seeing [employer] MD for 2 years now . 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 ), Cholelithiasis Renal/: Yes: Renal Calculi (at age 17 yrs passed stones on her own ), UTI ( in past ) Reproductive: Yes: Other ([place]agard iud in [place] 2 years ). No: Endometriosis, Fibroids, PID ...LMP: 01/31/18 (irregular periods ) ...: No (ucg neg ) ...: 2 ( x 2 ) ...Para: 2 Heme/Onc: Yes: Anemia, B12 Deficiency Infectious Disease: Yes: Other (pt declines any std ). No: STD's Psych: Yes: Depression, Other (pt personally declined any mental issues to me ) Endocrine: Yes: Other (h/o wt 357 lbs before Bypass. currently gain 40 lbs in last 2 months ). No: Diabetes Mellitus (pt denies if prdiabetic ) - Past Surgical History Past Surgical History: Yes: Bariatric Surgery (10 yrs ago ) - Alcohol/Substance Use Hx Alcohol Use: Yes (1/2 botle of wine 3-4/week. currently reduced ) History of Substance Use: reports: None - Smoking History Smoking history: Current every day smoker Have you smoked in the past 12 months: No Aproximately how many cigarettes per day: 3 If you are a former smoker, when did you quit?: 04/2015 Home Medications - Allergies Allergies/Adverse Reactions: Allergies Allergy/AdvReac Type Severity Reaction Status Date / Time gabapentin Allergy Mild Itching Verified 05/20/18 00:19 - Home Medications Home Medications: Ambulatory Orders Rifaximin [Xifaxan] 550 mg PO DAILY 02/14/17 Spironolactone [Aldactone] 25 mg PO BID 02/14/17 Zolpidem Tartrate [Ambien] 10 mg PO HS #14 tablet MDD 10 02/15/17 Cholecalciferol (Vitamin D3) [Vitamin D3 -] 1,000 unit PO DAILY 12/19/17 Folic Acid - 1 mg PO DAILY 12/19/17 Nadolol [Corgard -] 20 mg PO ASDIR 12/19/17 Ondansetron [Zofran *Odt*] 4 mg SL TID #30 od.tablet 12/20/17 Oxycodone HCl [Roxicodone] 5 mg PO QID #21 tablet MDD 4 12/20/17 Lidocaine 5% Patch [Lidoderm Patch -] 1 patch TP DAILY #7 patch 01/30/18 Family Disease History - Family Disease History Family Disease History: Diabetes: Mother (thyroid bipolar), CA: Father ( ), Other: Mother, Sister (thyroid) 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 No: Pelvis: Yes: WNL. No: Tenderness External Genitalia: Yes: Normal Vaginal Exam: Yes: Normal, Discharge. No: Bleeding Cervix: Yes: Normal, Other (iud string visualised). No: Cervicitis, Cerv Motion Tenderness Uterus: Yes: Normal, Anteverted, Firm. No: Mass, Tender Adnexa: Normal: Bilateral, Not Palpable: Bilateral (not tender ) Extremities: No: Calf Tenderness Edema: LLE: 1+, RLE: 1+ Integumentary: Yes: Incision (laproscopy scars , 2 '' suprapubic mid line scar) , Tattoos Neurological: Yes: WNL, Alert, Oriented ...Motor Strength: WNL Psychiatric: Yes: WNL, Alert, Oriented Labs: CBC, BMP 05/20/18 06:35 05/20/18 06:35 Laboratory Tests 05/20/18 05/20/18 05/20/18 00:40 00:40 01:20 Hemoglobin A1c % AST ALT Cancelled Alkaline Phosphatase Serum , Qual Negative Urine Blood 2+ H Urine WBC (Auto) <1 Urine RBC (Auto) 1 05/20/18 05/20/18 06:35 06:35 Hemoglobin A1c % Pending AST 66 H ALT 38 Alkaline Phosphatase 347 H Serum , Qual Urine Blood Urine WBC (Auto) Urine RBC (Auto) Problem List - Problems (1) Abdominal pain Code(s): R10.9 - UNSPECIFIED ABDOMINAL PAIN Qualifiers: Abdominal location: right upper quadrant Qualified Code(s): R10.11 - Right upper quadrant pain (2) IUD (intrauterine device) in place Code(s): Z97.5 - PRESENCE OF (INTRAUTERINE) CONTRACEPTIVE DEVICE (3) Irregular periods/menstrual cycles Code(s): N92.6 - IRREGULAR MENSTRUATION, UNSPECIFIED (4) Obesity (BMI 35.0-39.9 without comorbidity) Code(s): E66.9 - OBESITY, UNSPECIFIED Assessment/Plan 32 yrs , lmp ? 2 months ago, IUD ( paragard ) in utero, irregular periods probably secondary to cirrhosis of liver , obesity , possible PCO ,. \doubtful of personal lines agent cause for present abdominal pain . abdominal pain ossible due to cholelithisis ct scan report pending . ct scan distended gb with stones without cholecystitis
[2018-05-20] MEDS ORDERED: morphine SULFATE 4 MG/ML VIAL IVPUSH ONE (09:12)
[2018-05-20] MEDS ORDERED: PT OWN MED DRAWER 7, Y5N ONE (10:15)
--- NOTE | 2018-05-20 14:15 | CON.GI ---
Consult Consult Specialty:: GI Reason for Consultation:: RUQ abdominal painn x 2 days - History of Present Illness History of Present Illness: Acute onset RUQ, 5/10, radiating to the back pain x 2 days. No alleviating, or aggravating factors. No nausea, vomiting, dysphagia, odynophagia, dyspepsia, fever, jaundice, diarrhea. Hx hastric bypass 11 y ago. EGD 4 months ago for unexplained weight gain revealed no abnormalitites, per patient. She didn't follow up post procedure, however. We do not have any records of endoscopy here. No history of gastric, or duodenal ulcers, melena, hematochezia, hematemesis. No chronic NSAIDs, ETOH. A liver biopsy 1 y ago at [facility] showed "stage 4 cirrhosis", per patient. US of the liver on this admission showed biliary sludge and small stones; parenchymal liver disease with borderline hepatomegaly. PLT at low normal, Albumin 2.6, MCV >100, ALP 350, AST 60-80, normal ALT, bili, PT. Viral serology as tenses in 2016, negative. 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 ), Cholelithiasis Renal/: Yes: Renal Calculi (at age 17 yrs passed stones on her own ), UTI ( in past ) ...LMP: 01/31/18 (irregular periods ) ...: No (ucg neg ) Infectious Disease: Yes: Other (pt declines any std ). No: STD's Psych: Yes: Depression, Other (pt personally declined any mental issues to me ) Endocrine: Yes: Other (h/o wt 357 lbs before Bypass. currently gain 40 lbs in last 2 months ). No: Diabetes Mellitus (pt denies if prdiabetic ) - Past Surgical History Past Surgical History: Yes: Bariatric Surgery (10 yrs ago ) - Alcohol/Substance Use Hx Alcohol Use: Yes (1/2 botle of wine 3-4/week. currently reduced ) History of Substance Use: reports: None - Smoking History Smoking history: Current every day smoker Have you smoked in the past 12 months: No Aproximately how many cigarettes per day: 3 If you are a former smoker, when did you quit?: 04/2015 Home Medications - Allergies Allergies/Adverse Reactions: Allergies Allergy/AdvReac Type Severity Reaction Status Date / Time gabapentin Allergy Mild Itching Verified 05/20/18 00:19 - Home Medications Home Medications: Ambulatory Orders Rifaximin [Xifaxan] 550 mg PO DAILY 02/14/17 Spironolactone [Aldactone] 25 mg PO BID 02/14/17 Zolpidem Tartrate [Ambien] 10 mg PO HS #14 tablet MDD 10 02/15/17 Cholecalciferol (Vitamin D3) [Vitamin D3 -] 1,000 unit PO DAILY 12/19/17 Folic Acid - 1 mg PO DAILY 12/19/17 Nadolol [Corgard -] 20 mg PO ASDIR 12/19/17 Ondansetron [Zofran *Odt*] 4 mg SL TID #30 od.tablet 12/20/17 Oxycodone HCl [Roxicodone] 5 mg PO QID #21 tablet MDD 4 12/20/17 Lidocaine 5% Patch [Lidoderm Patch -] 1 patch TP DAILY #7 patch 01/30/18 Family Disease History - Family Disease History Family Disease History: Diabetes: Mother (thyroid bipolar), CA: Father ( ), Other: Mother, Sister (thyroid) Physical Exam-GI Vital Signs: Vital Signs Temperature 98.6 F 05/20/18 08:12 Pulse Rate 87 05/20/18 08:12 Respiratory Rate 18 05/20/18 09:00 Blood Pressure 114/69 05/20/18 08:12 O2 Sat by Pulse Oximetry (%) 98 05/20/18 09:45 Constitutional: Yes: Well Nourished, Anxious Eyes: Yes: Conjunctiva Clear HENT: Yes: Atraumatic Neck: Yes: Supple Cardiovascular: Yes: Regular Rate and Rhythm Respiratory: Yes: Regular Gastrointestinal Inspection: No: Ascites, Distention ...Auscultate: Yes: Normoactive Bowel Sounds ...Palpate: Yes: Soft, Tenderness, Epigastium. No: Guarding, Tenderness, Rebound Neurological: Yes: Alert, Oriented Labs: CBC, BMP 05/20/18 06:35 05/20/18 06:35 INR, PTT INR 1.09 (0.82-1.09) 05/20/18 06:35 Laboratory Last Values WBC 4.2 K/mm3 (4.0-10.0) 05/20/18 06:35 RBC 3.52 M/mm3 (3.60-5.2) L 05/20/18 06:35 Hgb 12.0 GM/dL (10.7-15.3) 05/20/18 06:35 Hct 36.3 % (32.4-45.2) 05/20/18 06:35 MCV 103.3 fl (80-96) H 05/20/18 06:35 MCH 34.2 pg (25.7-33.7) H 05/20/18 06:35 MCHC 33.1 g/dl (32.0-36.0) 05/20/18 06:35 RDW 16.2 % (11.6-15.6) H 05/20/18 06:35 Plt Count 142 K/MM3 (134-434) D 05/20/18 06:35 MPV 8.4 fl (7.5-11.1) 05/20/18 06:35 Absolute Neuts (auto) 2.2 # 05/20/18 06:35 Neutrophils % 52.3 % (42.8-82.8) 05/20/18 06:35 Lymphocytes % 35.4 % (8-40) D 05/20/18 06:35 Monocytes % 8.1 % (3.8-10.2) 05/20/18 06:35 Eosinophils % 2.6 % (0-4.5) 05/20/18 06:35 Basophils % 1.6 % (0-2.0) 05/20/18 06:35 Nucleated RBC % 0 % (0-0) 05/20/18 06:35 PT with INR 12.30 SEC (9.7-13.0) 05/20/18 06:35 INR 1.09 (0.82-1.09) 05/20/18 06:35 PTT (Actin FS) 22.6 SECONDS (25.2-36.5) L 05/20/18 06:35 Sodium 142 mmol/L (136-145) 05/20/18 06:35 Potassium 4.0 mmol/L (3.5-5.1) 05/20/18 06:35 Chloride 108 mmol/L (98-107) H 05/20/18 06:35 Carbon Dioxide 25 mmol/L (21-32) 05/20/18 06:35 Anion Gap 9 (8-16) 05/20/18 06:35 BUN 4 mg/dL (7-18) L 05/20/18 06:35 Creatinine 0.6 mg/dL (0.55-1.02) 05/20/18 06:35 Creat Clearance w eGFR > 60 (>60) 05/20/18 06:35 Random Glucose 84 mg/dL (74-106) 05/20/18 06:35 Hemoglobin A1c % 4.2 % (4.8-6.0) L 05/20/18 06:35 Calcium 7.5 mg/dL (8.5-10.1) L 05/20/18 06:35 Total Bilirubin 0.5 mg/dL (0.2-1.0) 05/20/18 06:35 AST 66 U/L (15-37) H 05/20/18 06:35 ALT 38 U/L (12-78) 05/20/18 06:35 Alkaline Phosphatase 347 U/L (45-117) H 05/20/18 06:35 Total Protein 6.4 g/dl (6.4-8.2) 05/20/18 06:35 Albumin 2.5 g/dl (3.4-5.0) L 05/20/18 06:35 Triglycerides 104 mg/dL (35-160) 05/20/18 06:35 Cholesterol 170 mg/dL (50-200) 05/20/18 06:35 Total LDL Cholesterol 50 mg/dL (5-100) 05/20/18 06:35 HDL Cholesterol 109 mg/dL (40-60) H 05/20/18 06:35 Lipase 114 U/L (73-393) 05/20/18 01:20 TSH 3.05 uIU/ml (0.358-3.74) 05/20/18 06:35 Serum , Qual Negative 05/20/18 00:40 Urine Color Ltyellow 05/20/18 01:20 Urine Appearance Clear 05/20/18 01:20 Urine pH 5.0 (5.0-8.0) 05/20/18 01:20 Ur Specific [place] 1.008 (1.001-1.035) 05/20/18 01:20 Urine Protein Negative (NEGATIVE) 05/20/18 01:20 Urine Glucose (UA) Negative (NEGATIVE) 05/20/18 01:20 Urine Ketones Negative (NEGATIVE) 05/20/18 01:20 Urine Blood 2+ (NEGATIVE) H 05/20/18 01:20 Urine Nitrite Negative (NEGATIVE) 05/20/18 01:20 Urine Bilirubin Negative (<2.0 mg/dL) 05/20/18 01:20 Urine Urobilinogen Negative mg/dL (0.2-1.0) 05/20/18 01:20 Ur Leukocyte Esterase Negative (NEGATIVE) 05/20/18 01:20 Urine WBC (Auto) <1 /hpf (3-5) 05/20/18 01:20 Urine RBC (Auto) 1 /hpf (0-3) 05/20/18 01:20 Ur Epithelial Cells Rare /HPF (FEW) 05/20/18 01:20 Urine Mucus Rare 05/20/18 01:20 Urine HCG, Qual Negative 05/20/18 01:20 Blood Type A POSITIVE 05/20/18 06:35 Antibody Screen Negative 05/20/18 06:35 Imaging - Results Ultrasound: Report Reviewed Problem List - Problems (1) Cholestasis Code(s): K83.1 - OBSTRUCTION OF BILE DUCT (2) RUQ pain Code(s): R10.11 - RIGHT UPPER QUADRANT PAIN (3) Epigastric abdominal tenderness Code(s): R10.816 - EPIGASTRIC ABDOMINAL TENDERNESS (4) Nonalcoholic steatohepatitis (ESQUIVEL) Code(s): K75.81 - NONALCOHOLIC STEATOHEPATITIS (ESQUIVEL) (5) Liver cirrhosis secondary to ESQUIVEL Code(s): K75.81 - NONALCOHOLIC STEATOHEPATITIS (ESQUIVEL); K74.60 - UNSPECIFIED CIRRHOSIS OF LIVER Assessment/Plan A 32F with RUQ, biliary sludge and likely intrahepatic cholestasis w/o signs of acute inflammation. History of gastric bypass raises a possibility of marginal ulcers, or upper GI inflammatory state. History of advanced liver disease secondary to ESQUIVEL/metabolic disease. Based on the liver imaging and the blood work results, the cirrhosis, if indeed is the case, appears to be compensated. Recommend PPI po, NPO, adequate hydration, surgical evaluation, serial liver chemistry with bili, PT, INR, and possible EGD. Discussed with the patient. Will follow.
[2018-05-20] MEDS: morphine SULFATE 4 MG/ML VIAL IVPUSH PRN ×3 (15:12→21:22)
--- NOTE | 2018-05-20 16:13 | CON.GU ---
Consult Consult Specialty:: Referred by:: Rachael Reason for Consultation:: hematuria - History of Present Illness History of Present Illness: 32 year old woman with a significant past history of nephrolithiasis, gallstones , Gastric bypass surgery and stage 4 ?alcoholic liver cirrhosis who presents to the ER with complaints of 2 months of vaginal "spotting" and 1 month of flank pain. Intermittent right sided flank pain radiates to her right lower quadrant and her right lower back and is worsened by movement. 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 She has had a copper IUD for 9 years . Was scheduled for an US on 05/17/18 but did not go to her appointment due to a family issues. EGD and colonoscopy in 2015 were both negative. She has "difficulty" swallowing but says she has gained 40 pounds recently. She denies fever, chills, nausea, vomiting, change in bowel habits, chest pain or SOB. She got treated with IV Morphine and Toradol in the ER but pain persists. She was found to have microscopic hematuria (vs vaginal spotting ) and cons req. 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 ), Cholelithiasis Renal/: Yes: Renal Calculi (at age 17 yrs passed stones on her own ), UTI ( in past ) ...LMP: 01/31/18 (irregular periods ) ...: No (ucg neg ) Infectious Disease: Yes: Other (pt declines any std ). No: STD's Psych: Yes: Depression, Other (pt personally declined any mental issues to me ) Endocrine: Yes: Other (h/o wt 357 lbs before Bypass. currently gain 40 lbs in last 2 months ). No: Diabetes Mellitus (pt denies if prdiabetic ) - Past Surgical History Past Surgical History: Yes: Bariatric Surgery (10 yrs ago ) - Alcohol/Substance Use Hx Alcohol Use: Yes (1/2 botle of wine 3-4/week. currently reduced ) History of Substance Use: reports: None - Smoking History Smoking history: Current every day smoker Have you smoked in the past 12 months: No Aproximately how many cigarettes per day: 3 If you are a former smoker, when did you quit?: 04/2015 Home Medications - Allergies Allergies/Adverse Reactions: Allergies Allergy/AdvReac Type Severity Reaction Status Date / Time gabapentin Allergy Mild Itching Verified 05/20/18 00:19 - Home Medications Home Medications: Ambulatory Orders Rifaximin [Xifaxan] 550 mg PO DAILY 02/14/17 Spironolactone [Aldactone] 25 mg PO BID 02/14/17 Zolpidem Tartrate [Ambien] 10 mg PO HS #14 tablet MDD 10 02/15/17 Cholecalciferol (Vitamin D3) [Vitamin D3 -] 1,000 unit PO DAILY 12/19/17 Folic Acid - 1 mg PO DAILY 12/19/17 Nadolol [Corgard -] 20 mg PO ASDIR 12/19/17 Ondansetron [Zofran *Odt*] 4 mg SL TID #30 od.tablet 12/20/17 Oxycodone HCl [Roxicodone] 5 mg PO QID #21 tablet MDD 4 12/20/17 Lidocaine 5% Patch [Lidoderm Patch -] 1 patch TP DAILY #7 patch 01/30/18 Family Disease History - Family Disease History Family Disease History: Diabetes: Mother (thyroid bipolar), CA: Father ( ), Other: Mother, Sister (thyroid) Physical Exam- Vital Signs: Vital Signs Temperature 98.6 F 05/20/18 08:12 Pulse Rate 87 05/20/18 08:12 Respiratory Rate 18 05/20/18 09:00 Blood Pressure 114/69 05/20/18 08:12 O2 Sat by Pulse Oximetry (%) 98 05/20/18 09:45 Gastrointestinal: Yes: Abdomen, Obese Labs: CBC, BMP 05/20/18 06:35 05/20/18 06:35 Imaging - Results Cat Scan: Report Reviewed, Image Reviewed Problem List - Problems (1) Hematuria Assessment/Plan: urine cytology, cystoscopy in my office after disch., consider non contrast CT to r/o renal calculi if pain persists. Code(s): R31.9 - HEMATURIA, UNSPECIFIED (2) Cirrhosis of liver Code(s): K74.60 - UNSPECIFIED CIRRHOSIS OF LIVER Qualifiers: Hepatic cirrhosis type: alcoholic cirrhosis Ascites presence: without ascites Qualified Code(s): K70.30 - Alcoholic cirrhosis of liver without ascites (3) Nicotine dependence Code(s): F17.200 - NICOTINE DEPENDENCE, UNSPECIFIED, UNCOMPLICATED Qualifiers: Nicotine product type: cigarettes Substance use status: in withdrawal Qualified Code(s): F17.213 - Nicotine dependence, cigarettes, with withdrawal
[2018-05-20] MEDS: SODIUM CHLORIDE 1,000 ML IV SCH (16:55)
--- NOTE | 2018-05-20 19:38 | CONSULT ---
Consult Consult Specialty:: general surgery Referred by:: Abdirashid Harrison NP Reason for Consultation:: abdominal pain - History of Present Illness Chief Complaint: abdomainal pain History of Present Illness: 32 yo female PMH cholelithiasis, nephrolithiasis, cirrhosis ESQUIVEL/ EtOH, gastric bypass, neuropathy, depression, anemia, sleep apnea on CPAP, and DM? who presents with chronic abdominal pain. Pt states that she has had a month of intermittent right sided abdominal pain, throbbing/stabbing in quality, severe, radiating in belt-like fashion around abdomen and back, and mildly relieved by warm compresses and positioning. Darlene En Y gastic bypass at [facility] 2006. She initial lost weight but has had recent significant weight gain. Report endorses fatigue, lightheadedness, cold sweats, mild headache, insomnia, and apnea. She also endorses a 40 pound weight gain in the past 2.5 months despite having difficulty swallowing solids due to gagging. She denies odynophagia and a feeling of the food getting stuck in her throat. Per records, she had a normal endocoscopy and colonoscopy in 2014. Her abdominal pain is focal to the right abdomen with radiation to the right flank. She denies nausea and vomiting, no fever or chills. She reports not being able to tolerate much food over 8-9 months but gustabo has experineced a 50+ pound weight gain over the past 3 months. We were asked to assess. 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 ), Cholelithiasis Renal/: Yes: Renal Calculi (at age 17 yrs passed stones on her own ), UTI ( in past ) ...LMP: 01/31/18 (irregular periods ) ...: No (ucg neg ) Infectious Disease: Yes: Other (pt declines any std ). No: STD's Psych: Yes: Depression, Other (pt personally declined any mental issues to me ) Endocrine: Yes: Other (h/o wt 357 lbs before Bypass. currently gain 40 lbs in last 2 months ). 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) - Alcohol/Substance Use Hx Alcohol Use: No History of Substance Use: reports: None - Smoking History Smoking history: Current every day smoker Have you smoked in the past 12 months: No Aproximately how many cigarettes per day: 3 If you are a former smoker, when did you quit?: 04/2015 - Social History Usual Living Arrangement: With Child Home Medications - Allergies Allergies/Adverse Reactions: Allergies Allergy/AdvReac Type Severity Reaction Status Date / Time gabapentin Allergy Mild Itching Verified 05/20/18 00:19 - Home Medications Home Medications: Ambulatory Orders Rifaximin [Xifaxan] 550 mg PO DAILY 02/14/17 Spironolactone [Aldactone] 25 mg PO BID 02/14/17 Zolpidem Tartrate [Ambien] 10 mg PO HS #14 tablet MDD 10 02/15/17 Cholecalciferol (Vitamin D3) [Vitamin D3 -] 1,000 unit PO DAILY 12/19/17 Folic Acid - 1 mg PO DAILY 12/19/17 Nadolol [Corgard -] 20 mg PO ASDIR 12/19/17 Ondansetron [Zofran *Odt*] 4 mg SL TID #30 od.tablet 12/20/17 Oxycodone HCl [Roxicodone] 5 mg PO QID #21 tablet MDD 4 12/20/17 Lidocaine 5% Patch [Lidoderm Patch -] 1 patch TP DAILY #7 patch 01/30/18 Family Disease History - Family Disease History Family Disease History: Diabetes: Mother (thyroid bipolar), CA: Father ( ), Other: Mother, Sister (thyroid) Review of Systems - Review of Systems Constitutional: denies: Chills, Fever Eyes: denies: Blurred Vision, Recent Change in Vision HENT: denies: Difficult Swallowing, Throat Pain Neck: denies: Decreased ROM, Tenderness Cardiovascular: denies: Chest Pain, Palpitations Respiratory: denies: Cough, SOB Gastrointestinal: reports: Abdominal Pain, Bloating, Indigestion. denies: Constipation, Diarrhea, Nausea Genitourinary: denies: Discharge, Dysuria Musculoskeletal: denies: Back Pain, Muscle Pain, Muscle Weakness Integumentary: denies: Eczema, Lesions, Rash Neurological: denies: Seizure, Syncope Endocrine: reports: Unexplained Weight Gain (weight gain >50lbs over 3 months). denies: Unexplained Weight Loss Hematology/Lymphatic: denies: Easily Bruised, Excessive Bleeding Psychiatric: denies: Anxiety, Depression Physical Exam Vital Signs: Vital Signs Temperature 98.6 F 05/20/18 08:12 Pulse Rate 86 05/20/18 19:30 Respiratory Rate 16 05/20/18 19:30 Blood Pressure 107/41 05/20/18 19:30 O2 Sat by Pulse Oximetry (%) 95 05/20/18 19:30 Vital Signs Period Temp Pulse Resp BP Sys/Morris Pulse Ox Last 24 Hr 0 F-99 F 75-86 16-20 100-116/41-69 95-95 Constitutional: Yes: No Distress, Calm, Obese, Poor Hygeine Eyes: Yes: Conjunctiva Clear, EOM Intact HENT: Yes: Atraumatic, Normocephalic Neck: Yes: Supple, Trachea Midline Cardiovascular: Yes: Regular Rate and Rhythm, S1, S2 Respiratory: Yes: Regular, CTA Bilaterally. No: Wheezes Gastrointestinal: Yes: Normal Bowel Sounds, Soft, Abdomen, Obese, Tenderness ( uncomfortable RUQ and RLQ? negtaive murphys). No: Hepatomegaly, Hernia, Tenderness, Epigastrium, Tenderness, Rebound ...Rectal Exam: Yes: Deferred Renal/: Yes: Vaginal Bleeding. No: CVA Tenderness - Left, CVA Tenderness - Right Musculoskeletal: No: Muscle Pain, Muscle Weakness Extremities: No: Cool, Cyanosis Edema: Yes Edema: LLE: 2+, RLE: 2+ Peripheral Pulses WNL: Yes Integumentary: No: Jaundice, Rash Neurological: Yes: Alert, Oriented, Babinski positive Psychiatric: Yes: Alert, Oriented Labs: CBC, BMP 05/20/18 06:35 05/20/18 06:35 INR, PTT INR 1.14 (0.82-1.09) 05/21/18 06:50 CBC,CMP WBC 3.3 K/mm3 (4.0-10.0) L 05/21/18 06:50 RBC 3.13 M/mm3 (3.60-5.2) L 05/21/18 06:50 Hgb 10.8 GM/dL (10.7-15.3) 05/21/18 06:50 Hct 32.1 % (32.4-45.2) L 05/21/18 06:50 MCV 102.6 fl (80-96) H 05/21/18 06:50 MCH 34.5 pg (25.7-33.7) H 05/21/18 06:50 MCHC 33.7 g/dl (32.0-36.0) 05/21/18 06:50 RDW 15.8 % (11.6-15.6) H 05/21/18 06:50 Plt Count 103 K/MM3 (134-434) L D 05/21/18 06:50 MPV 8.4 fl (7.5-11.1) 05/21/18 06:50 Absolute Neuts (auto) 1.8 # 05/21/18 06:50 Neutrophils % 54.1 % (42.8-82.8) 05/21/18 06:50 Lymphocytes % 33.8 % (8-40) 05/21/18 06:50 Monocytes % 9.8 % (3.8-10.2) 05/21/18 06:50 Eosinophils % 1.6 % (0-4.5) 05/21/18 06:50 Basophils % 0.7 % (0-2.0) 05/21/18 06:50 Nucleated RBC % 0 % (0-0) 05/21/18 06:50 Sodium 139 mmol/L (136-145) 05/21/18 06:50 Potassium 4.4 mmol/L (3.5-5.1) 05/21/18 06:50 Chloride 106 mmol/L (98-107) 05/21/18 06:50 Carbon Dioxide 27 mmol/L (21-32) 05/21/18 06:50 Anion Gap 6 (8-16) L 05/21/18 06:50 BUN 5 mg/dL (7-18) L 05/21/18 06:50 Creatinine 0.5 mg/dL (0.55-1.02) L 05/21/18 06:50 Creat Clearance w eGFR > 60 (>60) 05/21/18 06:50 Random Glucose 70 mg/dL (74-106) L 05/21/18 06:50 Hemoglobin A1c % 4.2 % (4.8-6.0) L 05/20/18 06:35 Calcium 7.5 mg/dL (8.5-10.1) L 05/21/18 06:50 Total Bilirubin 1.6 mg/dL (0.2-1.0) H 05/21/18 06:50 AST 45 U/L (15-37) H 05/21/18 06:50 ALT 26 U/L (12-78) 05/21/18 06:50 Alkaline Phosphatase 283 U/L (45-117) H D 05/21/18 06:50 Total Protein 5.4 g/dl (6.4-8.2) L 05/21/18 06:50 Albumin 2.1 g/dl (3.4-5.0) L 05/21/18 06:50 Triglycerides 104 mg/dL (35-160) 05/20/18 06:35 Cholesterol 170 mg/dL (50-200) 05/20/18 06:35 Total LDL Cholesterol 50 mg/dL (5-100) 05/20/18 06:35 HDL Cholesterol 109 mg/dL (40-60) H 05/20/18 06:35 Lipase 114 U/L (73-393) 05/20/18 01:20 TSH 3.05 uIU/ml (0.358-3.74) 05/20/18 06:35 Serum , Qual Negative 05/20/18 00:40 Imaging - Results Cat Scan: Report Reviewed, Image Reviewed (distended GB with stones. no cholecystitis) Problem List - Problems (1) Cholelithiasis Assessment/Plan: 32 yo female PMH cirrhois 2nd to ESQUIVEL/ EtOH, morbid obesity with incidental finding of cholelithiasis No need for acute surgical intervention Diet as tolerated Bariatric surgery consultation - her surgeon is retired Low fat diet endocrine evaluation Thank you for the opportunity to participate in the care of this patient. 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
[2018-05-21] MEDS: morphine SULFATE 4 MG/ML VIAL IVPUSH PRN ×6 (00:46→21:11)
[2018-05-21] MEDS: SODIUM CHLORIDE 1,000 ML IV SCH ×2 (05:13→16:47)
[2018-05-21] MEDS: HEPARIN NA (PORCINE) 5,000 UNITS/ML 1ML VIAL SQ SCH ×2 (05:14→15:26)
[2018-05-21 07:57] LABS: BASO % 0.7 % (0-2.0); EOS % 1.6 % (0-4.5); HEMATOCRIT 32.1 % (32.4-45.2); HEMOGLOBIN 10.8 GM/dL (10.7-15.3); LYMPH % 33.8 % (8-40); MCH 34.5 pg (25.7-33.7); MCHC 33.7 g/dl (32.0-36.0); MEAN CELL VOLUME 102.6 fl (80-96); MEAN PLT VOLUME 8.4 fl (7.5-11.1); MONO % 9.8 % (3.8-10.2); NEUT % 54.1 % (42.8-82.8); PLATELET COUNT 103 K/MM3 (134-434); RBC 3.13 M/mm3 (3.60-5.2); RDW 15.8 % (11.6-15.6); WHITE BLOOD COUNT 3.3 K/mm3 (4.0-10.0)
[2018-05-21 08:18] LABS: INR 1.14 (0.82-1.09); PROTHROMBIN TIME (PATIENT) 12.9 SEC (9.7-13.0)
[2018-05-21 08:26] LABS: ALBUMIN 2.1 g/dl (3.4-5.0); ANION GAP 6 (8-16); BLOOD UREA NITROGEN 5 mg/dL (7-18); CALCIUM 7.5 mg/dL (8.5-10.1); CHLORIDE 106 mmol/L (98-107); CO2 27 mmol/L (21-32); GLUCOSE,RANDOM 70 mg/dL (74-106); POTASSIUM 4.4 mmol/L (3.5-5.1); SODIUM 139 mmol/L (136-145)
[2018-05-21 08:29] LABS: ALK PHOS 283 U/L (45-117); BILIRUBIN,TOTAL 1.6 mg/dL (0.2-1.0); CREATININE 0.5 mg/dL (0.55-1.02); SGOT/AST 45 U/L (15-37); SGPT/ALT 26 U/L (12-78); TOT PROT 5.4 g/dl (6.4-8.2)
[2018-05-21] MEDS: PANTOPRAZOLE SODIUM 40 MG VIAL IVPUSH SCH (09:09)
[2018-05-21] MEDS ORDERED: FUROSEMIDE 40 MG/4 ML INJECTABLE VIAL IVPUSH ONE (10:44)
--- NOTE | 2018-05-21 11:47 | PN ---
Progress Note (short form) - Note Progress Note: Subjective: The patient was seen and examined at the bedside, she is tearful and reporting she is still having abdominal pain Current Medications Generic Name Dose Route Start Last Admin Trade Name Antelmo PRN Reason Stop Dose Admin Heparin Sodium (Porcine) 5,000 unit 05/20/18 06:00 05/21/18 05:14 Heparin - SQ 5,000 unit TID MARTHA Administration Sodium Chloride 1,000 mls @ 100 mls/hr 05/20/18 15:45 05/21/18 05:13 Normal Saline - IV 100 mls/hr ASDIR MARTHA Administration Morphine Sulfate 2 mg 05/20/18 14:39 05/21/18 12:31 Morphine Sulfate IVPUSH 2 mg Q3H PRN Administration PAIN LEVEL 7 - 10 Pantoprazole Sodium 40 mg 05/21/18 10:00 05/21/18 09:09 Protonix Iv IVPUSH 40 mg DAILY MARTHA Administration Objective: Vital Signs Period Temp Pulse Resp BP Sys/Morris Pulse Ox Last 24 Hr 0 F-99 F 75-86 16-20 100-116/41-69 95-95 Physical Exam: General: NAD, A&Ox3 Lungs: CTA bilaterally Heart: RRR, S1S2 Abd: Soft, mild RUQ tenderness. No CVA tenderness Ext: B/l lower extremity 2+ edema CBCD WBC 3.3 K/mm3 (4.0-10.0) L 05/21/18 06:50 RBC 3.13 M/mm3 (3.60-5.2) L 05/21/18 06:50 Hgb 10.8 GM/dL (10.7-15.3) 05/21/18 06:50 Hct 32.1 % (32.4-45.2) L 05/21/18 06:50 MCV 102.6 fl (80-96) H 05/21/18 06:50 MCHC 33.7 g/dl (32.0-36.0) 05/21/18 06:50 RDW 15.8 % (11.6-15.6) H 05/21/18 06:50 Plt Count 103 K/MM3 (134-434) L D 05/21/18 06:50 MPV 8.4 fl (7.5-11.1) 05/21/18 06:50 CMP Sodium 139 mmol/L (136-145) 05/21/18 06:50 Potassium 4.4 mmol/L (3.5-5.1) 05/21/18 06:50 Chloride 106 mmol/L (98-107) 05/21/18 06:50 Carbon Dioxide 27 mmol/L (21-32) 05/21/18 06:50 Anion Gap 6 (8-16) L 05/21/18 06:50 BUN 5 mg/dL (7-18) L 05/21/18 06:50 Creatinine 0.5 mg/dL (0.55-1.02) L 05/21/18 06:50 Creat Clearance w eGFR > 60 (>60) 05/21/18 06:50 Random Glucose 70 mg/dL (74-106) L 05/21/18 06:50 Calcium 7.5 mg/dL (8.5-10.1) L 05/21/18 06:50 Total Bilirubin 1.6 mg/dL (0.2-1.0) H 05/21/18 06:50 AST 45 U/L (15-37) H 05/21/18 06:50 ALT 26 U/L (12-78) 05/21/18 06:50 Alkaline Phosphatase 283 U/L (45-117) H D 05/21/18 06:50 Total Protein 5.4 g/dl (6.4-8.2) L 05/21/18 06:50 Albumin 2.1 g/dl (3.4-5.0) L 05/21/18 06:50 Assessment: This is a 32 year old female with PMHx of gastric bypass (2006), cirrhosis, cholelithiasis, neuopathy, depression, anemia, sleep apnea, who presented to the ED with chronic abdominal pain and weight gain. Plan: 1) Abdominal pain - CTAP with slightly over distended gallbladder with small intraluminal layering stones and without evidence of acute cholecystitis. No CT evidence of acute process in the abdomen/pelvis - Abdominal ultrasound: liver is borderline in size with slightly to moderately dense and coarse echotexture suggestive of fatty infiltration versus hepatocellular disease slightly over distended gallbladder without intraluminal stones the largest measuring 1cm and without sonographic evidence of acute cholecystitis. Normal flow inthe main portal vein - Pain management - No acute surgical intervention at this time - Tolerating diet - For EGD tomorrow - Appreciate GI consult - Appreciate surgery consult 2) Liver cirrhosis - Patient reports recent diagnosis with liver specialist at [facility] - Continue to monitor liver chemistries - Appreciate GI consult 3) 40lb weight gain - Patient states she has been on Lasix 40mg po daily for 2.5 years and about 4- 5 months ago she ran out and has not taken any since then - Weight gain may be 2/2 fluid overload - Will give Lasix - Daily weights 4) Hematuria - Blood in urine, however patient has vaginal bleeding and may have been contaminated - Urine cytology/cystoscopy as outpatient - Appreciate urology consult 5) Vaginal bleeding - Patient reports vaginal bleeding x2 months on and off. 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 - New Patient This patient is new to me today: Yes Date on this admission: 05/21/18 - Critical Care Critical Care patient: No
[2018-05-21 15:16] LABS: BASO % 0.9 % (0-2.0); EOS % 2.2 % (0-4.5); HEMATOCRIT 35.6 % (32.4-45.2); HEMOGLOBIN 11.9 GM/dL (10.7-15.3); LYMPH % 30.7 % (8-40); MCH 34.4 pg (25.7-33.7); MCHC 33.5 g/dl (32.0-36.0); MEAN CELL VOLUME 102.6 fl (80-96); MEAN PLT VOLUME 8.6 fl (7.5-11.1); NEUT % 56.2 % (42.8-82.8); PLATELET COUNT 120 K/MM3 (134-434); RBC 3.47 M/mm3 (3.60-5.2); WHITE BLOOD COUNT 3.1 K/mm3 (4.0-10.0)
--- NOTE | 2018-05-21 16:10 | CONSULT ---
Consult Consult Specialty:: Bariatric surgery Reason for Consultation:: Abdominal pain - History of Present Illness History of Present Illness: 32 female s/p Chu en Y gastric Bypass 2007 at [facility] History of cirrhosis per patient on biopsy Being treated and followed at 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 ), Cholelithiasis Renal/: Yes: Renal Calculi (at age 17 yrs passed stones on her own ), UTI ( in past ) ...LMP: 01/31/18 (irregular periods ) ...: No (ucg neg ) Infectious Disease: Yes: Other (pt declines any std ). No: STD's Psych: Yes: Depression, Other (pt personally declined any mental issues to me ) Endocrine: Yes: Other (h/o wt 357 lbs before Bypass. currently gain 40 lbs in last 2 months ). 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) - Alcohol/Substance Use Hx Alcohol Use: No History of Substance Use: reports: None - Smoking History Smoking history: Current every day smoker Have you smoked in the past 12 months: No Aproximately how many cigarettes per day: 3 If you are a former smoker, when did you quit?: 04/2015 - Social History Usual Living Arrangement: With Child Home Medications - Allergies Allergies/Adverse Reactions: Allergies Allergy/AdvReac Type Severity Reaction Status Date / Time gabapentin Allergy Mild Itching Verified 05/20/18 00:19 - Home Medications Home Medications: Ambulatory Orders Rifaximin [Xifaxan] 550 mg PO DAILY 02/14/17 Spironolactone [Aldactone] 25 mg PO BID 02/14/17 Zolpidem Tartrate [Ambien] 10 mg PO HS #14 tablet MDD 10 02/15/17 Cholecalciferol (Vitamin D3) [Vitamin D3 -] 1,000 unit PO DAILY 12/19/17 Folic Acid - 1 mg PO DAILY 12/19/17 Nadolol [Corgard -] 20 mg PO ASDIR 12/19/17 Ondansetron [Zofran *Odt*] 4 mg SL TID #30 od.tablet 12/20/17 Oxycodone HCl [Roxicodone] 5 mg PO QID #21 tablet MDD 4 12/20/17 Lidocaine 5% Patch [Lidoderm Patch -] 1 patch TP DAILY #7 patch 01/30/18 Family Disease History - Family Disease History Family Disease History: Diabetes: Mother (thyroid bipolar), CA: Father ( ), Other: Mother, Sister (thyroid) Review of Systems - Review of Systems Constitutional: denies: Chills, Fever Neck: reports: No Symptoms Cardiovascular: denies: Chest Pain Respiratory: denies: Cough, SOB Gastrointestinal: reports: Abdominal Pain. denies: Vomiting Neurological: denies: Change in LOC Pain Intensity: 5 Physical Exam Vital Signs: Vital Signs Temperature 98.8 F 05/21/18 15:04 Pulse Rate 84 05/21/18 15:04 Respiratory Rate 18 05/21/18 15:04 Blood Pressure 137/87 05/21/18 15:04 O2 Sat by Pulse Oximetry (%) 95 05/20/18 21:00 Constitutional: Yes: Calm Neck: Yes: WNL Cardiovascular: Yes: WNL Respiratory: Yes: Regular Gastrointestinal: Yes: Soft, Tenderness (Mild right sided abdominal tenderness) . 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 pain due to cirrhosis and sequelae Recommend follow up with liver specialist/possible transfer or further evaluation at [facility] EGD planned No acute surgical intervention needed at this time
[2018-05-22] MEDS: morphine SULFATE 4 MG/ML VIAL IVPUSH PRN ×2 (01:29→09:40)
[2018-05-22] MEDS: SODIUM CHLORIDE 1,000 ML IV SCH (01:34)
[2018-05-22 07:21] LABS: BASO % 0.9 % (0-2.0); EOS % 2.4 % (0-4.5); HEMATOCRIT 32.7 % (32.4-45.2); HEMOGLOBIN 10.9 GM/dL (10.7-15.3); LYMPH % 34.2 % (8-40); MCH 34.2 pg (25.7-33.7); MCHC 33.4 g/dl (32.0-36.0); MEAN CELL VOLUME 102.4 fl (80-96); MONO % 10.6 % (3.8-10.2); NEUT % 51.9 % (42.8-82.8); PLATELET COUNT 111 K/MM3 (134-434); RDW 15.8 % (11.6-15.6); WHITE BLOOD COUNT 3.4 K/mm3 (4.0-10.0)
[2018-05-22 07:44] LABS: CALCIUM 7.3 mg/dL (8.5-10.1); CHLORIDE 102 mmol/L (98-107); POTASSIUM 3.6 mmol/L (3.5-5.1); SODIUM 138 mmol/L (136-145)
[2018-05-22 08:08] LABS: ALBUMIN 2.1 g/dl (3.4-5.0); ALK PHOS 267 U/L (45-117); ANION GAP 7 (8-16); BILIRUBIN,TOTAL 1.3 mg/dL (0.2-1.0); BLOOD UREA NITROGEN 4 mg/dL (7-18); CO2 29 mmol/L (21-32); CREATININE 0.5 mg/dL (0.55-1.02); GLUCOSE,RANDOM 68 mg/dL (74-106); SGOT/AST 38 U/L (15-37); SGPT/ALT 25 U/L (12-78); TOT PROT 5.4 g/dl (6.4-8.2)
[2018-05-22] MEDS: PANTOPRAZOLE SODIUM 40 MG VIAL IVPUSH SCH (09:41)
[2018-05-22] MEDS ORDERED: PROPOFOL 20 ML ONE (11:47)
--- NOTE | 2018-05-22 12:06 | PN ---
Progress Note, Physician Chief Complaint: abdominal pain History of Present Illness: 32 yo female PMH cholelithiasis, nephrolithiasis, cirrhosis ESQUIVEL/ EtOH, gastric bypass, neuropathy, depression, anemia, sleep apnea on CPAP, and DM? who presents with chronic abdominal pain. Pt states that she has had a month of intermittent right sided abdominal pain, throbbing/stabbing in quality, severe, radiating in belt-like fashion around abdomen and back, and mildly relieved by warm compresses and positioning. Chu En Y gastic bypass at [facility] 2006. no acute events overnight. - Current Medication List Current Medications: Active Medications Sodium Chloride (Normal Saline -) 1,000 mls @ 100 mls/hr IV ASDIR [facility] Last Admin: 05/22/18 01:34 Dose: 100 mls/hr Morphine Sulfate (Morphine Sulfate) 2 mg IVPUSH Q3H PRN PRN Reason: PAIN LEVEL 7 - 10 Last Admin: 05/22/18 09:40 Dose: 2 mg Pantoprazole Sodium (Protonix Iv) 40 mg IVPUSH DAILY [facility] Last Admin: 05/22/18 09:41 Dose: 40 mg - Objective Vital Signs: Vital Signs Temperature 98.7 F 05/22/18 06:00 Pulse Rate 82 05/22/18 06:00 Respiratory Rate 20 05/22/18 06:00 Blood Pressure 105/65 05/22/18 06:00 O2 Sat by Pulse Oximetry (%) 95 05/21/18 21:00 Constitutional: Yes: No Distress, Calm, Obese Eyes: Yes: Conjunctiva Clear, EOM Intact HENT: Yes: Atraumatic, Normocephalic Neck: Yes: Supple, Trachea Midline Cardiovascular: Yes: Regular Rate and Rhythm, S1, S2 Respiratory: Yes: Regular, CTA Bilaterally Gastrointestinal: Yes: Normal Bowel Sounds, Soft, Abdomen, Obese. No: Tenderness, Tenderness, Epigastrium, Tenderness, Rebound ...Rectal Exam: Yes: Deferred Genitourinary: No: CVA Tenderness - Left, CVA Tenderness - Right Extremities: No: Cool, Cyanosis Edema: No Peripheral Pulses WNL: Yes Peripheral Pulses: Left Doralis Pedis: 2+, Right Dorsalis Pedis: 2+ Integumentary: Yes: Body Piercing, Tattoos. No: Jaundice, Rash Neurological: Yes: Alert, Oriented Psychiatric: Yes: Alert, Oriented Labs: CBC, BMP 05/22/18 06:30 05/22/18 06:30 INR, PTT INR 1.14 (0.82-1.09) 05/21/18 06:50 Problem List - Problems (1) Cholelithiasis Assessment/Plan: 32 yo female PMH cirrhois 2nd to ESQUIVEL/ EtOH, morbid obesity with incidental finding of cholelithiasis No need for acute surgical intervention Diet as tolerated Completely defer all management decisions going forward to Dr. Waggoner, Bariatric surgery Thank you for the opportunity to participate in the care of this patient. 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
[2018-05-22 13:00] VITALS: BMI 43.1
--- NOTE | 2018-05-22 13:02 | PN ---
Progress Note (short form) - Note Progress Note: Subjective: The patient was seen and examined at the bedside, she is tearful and reporting she is still having abdominal pain Current Medications Generic Name Dose Route Start Last Admin Trade Name Antelmo PRN Reason Stop Dose Admin Heparin Sodium (Porcine) 5,000 unit 05/20/18 06:00 05/21/18 05:14 Heparin - SQ 5,000 unit TID MARTHA Administration Sodium Chloride 1,000 mls @ 100 mls/hr 05/20/18 15:45 05/21/18 05:13 Normal Saline - IV 100 mls/hr ASDIR MARTHA Administration Morphine Sulfate 2 mg 05/20/18 14:39 05/21/18 12:31 Morphine Sulfate IVPUSH 2 mg Q3H PRN Administration PAIN LEVEL 7 - 10 Pantoprazole Sodium 40 mg 05/21/18 10:00 05/21/18 09:09 Protonix Iv IVPUSH 40 mg DAILY MARTHA Administration Objective: Vital Signs Period Temp Pulse Resp BP Sys/Morris Pulse Ox Last 24 Hr 0 F-99 F 75-86 16-20 100-116/41-69 95-95 Physical Exam: General: NAD, A&Ox3 Lungs: CTA bilaterally Heart: RRR, S1S2 Abd: Soft, mild RUQ tenderness. No CVA tenderness Ext: B/l lower extremity 2+ edema CBCD WBC 3.4 K/mm3 (4.0-10.0) L 05/22/18 06:30 RBC 3.20 M/mm3 (3.60-5.2) L 05/22/18 06:30 Hgb 10.9 GM/dL (10.7-15.3) 05/22/18 06:30 Hct 32.7 % (32.4-45.2) 05/22/18 06:30 MCV 102.4 fl (80-96) H 05/22/18 06:30 MCHC 33.4 g/dl (32.0-36.0) 05/22/18 06:30 RDW 15.8 % (11.6-15.6) H 05/22/18 06:30 Plt Count 111 K/MM3 (134-434) L 05/22/18 06:30 MPV 9.0 fl (7.5-11.1) 05/22/18 06:30 CMP Sodium 138 mmol/L (136-145) 05/22/18 06:30 Potassium 3.6 mmol/L (3.5-5.1) 05/22/18 06:30 Chloride 102 mmol/L (98-107) 05/22/18 06:30 Carbon Dioxide 29 mmol/L (21-32) 05/22/18 06:30 Anion Gap 7 (8-16) L 05/22/18 06:30 BUN 4 mg/dL (7-18) L 05/22/18 06:30 Creatinine 0.5 mg/dL (0.55-1.02) L 05/22/18 06:30 Creat Clearance w eGFR > 60 (>60) 05/22/18 06:30 Random Glucose 68 mg/dL (74-106) L 05/22/18 06:30 Calcium 7.3 mg/dL (8.5-10.1) L 05/22/18 06:30 Total Bilirubin 1.3 mg/dL (0.2-1.0) H 05/22/18 06:30 AST 38 U/L (15-37) H 05/22/18 06:30 ALT 25 U/L (12-78) 05/22/18 06:30 Alkaline Phosphatase 267 U/L (45-117) H D 05/22/18 06:30 Total Protein 5.4 g/dl (6.4-8.2) L 05/22/18 06:30 Albumin 2.1 g/dl (3.4-5.0) L 05/22/18 06:30 Assessment: This is a 32 year old female with PMHx of gastric bypass (2006), cirrhosis, cholelithiasis, neuopathy, depression, anemia, sleep apnea, who presented to the ED with chronic abdominal pain and weight gain. Plan: 1) Abdominal pain - CTAP with slightly over distended gallbladder with small intraluminal layering stones and without evidence of acute cholecystitis. No CT evidence of acute process in the abdomen/pelvis - Abdominal ultrasound: liver is borderline in size with slightly to moderately dense and coarse echotexture suggestive of fatty infiltration versus hepatocellular disease slightly over distended gallbladder without intraluminal stones the largest measuring 1cm and without sonographic evidence of acute cholecystitis. Normal flow inthe main portal vein - Pain management - No acute surgical intervention at this time - Tolerating diet - For EGD tomorrow - Appreciate GI consult - Appreciate surgery consult 2) Liver cirrhosis - Patient reports recent diagnosis with liver specialist at [facility] - Continue to monitor liver chemistries - Appreciate GI consult 3) 40lb weight gain - Patient states she has been on Lasix 40mg po daily for 2.5 years and about 4- 5 months ago she ran out and has not taken any since then - Weight gain may be 2/2 fluid overload - Will give Lasix - Daily weights 4) Hematuria - Blood in urine, however patient has vaginal bleeding and may have been contaminated - Urine cytology/cystoscopy as outpatient - Appreciate urology consult 5) Vaginal bleeding - Patient reports vaginal bleeding x2 months on and off. 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
[2018-05-22] MEDS ORDERED: DICYCLOMINE HCL 20 MG TABLET PO PRN (13:56)
--- NOTE | 2018-05-22 14:00 | PROC ---
Endoscopy Procedure Endoscopy procedure completed. Please see scanned procedure report. Normal-appearing anastomosis, blind and efferent limbs. Normal-appearing, 4 cm gastric pouch, GEJ and the esophagus. Random, cold forceps biopsies were taken from the proximal jejunum and sent to pathology. Resume previous diet. Sx follow up re cholelithiasis. Agree with TSH/FT4. Added Bantyl PRN
[2018-05-22 14:30] VITALS: TEMP 98.3
[2018-05-22] MEDS ORDERED: morphine SULFATE 4 MG/ML VIAL SQ ONE (15:00)
[2018-05-22] MEDS ORDERED: FUROSEMIDE 40 MG TABLET (FP) PO ONE (15:00)
--- NOTE | 2018-05-22 15:01 | DS ---
Physical Examination Vital Signs: Vital Signs Temperature 98.3 F 05/22/18 14:27 Pulse Rate 73 05/22/18 14:27 Respiratory Rate 18 05/22/18 14:27 Blood Pressure 126/78 05/22/18 12:57 O2 Sat by Pulse Oximetry (%) 100 05/22/18 12:57 Labs: CBC, BMP 05/22/18 06:30 05/22/18 06:30 Discharge Summary Reason For Visit: ABDOMINAL PAIN,CHOLELITHIASIS Current Active Problems Cholestasis (Acute) Epigastric abdominal tenderness (Acute) Hematuria (Acute) IUD (intrauterine device) in place (Acute) Irregular periods/menstrual cycles (Acute) Liver cirrhosis secondary to ESQUIVEL (Acute) Nonalcoholic steatohepatitis (ESQUIVEL) (Acute) Obesity (BMI 35.0-39.9 without comorbidity) (Acute) RUQ pain (Acute) Condition: Improved - Instructions Diet, Activity, Other Instructions: Please return to the ED with new, persistent, or worsening symptoms. Please follow-up with providers as indicated. Please follow-up with your liver specialist, Dr. Flowers at [facility] within the next 3-5 days. 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 Colmenares within 1 week for your endoscopy biopsy results. ) Gilda Healy [Staff Physician] - (Please follow-up with your primary care provider within 1 week. ) Disposition: HOME - Home Medications Comprehensive Discharge Medication List: Ambulatory Orders Rifaximin [Xifaxan -] 550 mg PO DAILY 02/14/17 Spironolactone [Aldactone -] 25 mg PO BID 02/14/17 Zolpidem Tartrate [Ambien] 10 mg PO HS #14 tablet MDD 10 02/15/17 Cholecalciferol (Vitamin D3) [Vitamin D3 -] 1,000 unit PO DAILY 12/19/17 Folic Acid - 1 mg PO DAILY 12/19/17 Nadolol [Corgard -] 20 mg PO ASDIR 12/19/17 Lidocaine 5% Patch [Lidoderm -] 1 patch TP DAILY #7 patch 01/30/18 Dicyclomine HCl [Bentyl -] 20 mg PO Q6H PRN #30 tablet 05/22/18 Ondansetron [Zofran Odt -] 4 mg SL TID PRN #30 od.tablet 05/22/18 Oxycodone HCl [Roxicodone] 5 mg PO QID PRN #15 tablet MDD 4 tab 05/22/18
[2018-05-22] MEDS ORDERED: DICYCLOMINE HCL 10 MG CAPSULE PO PRN (16:18)
[2018-05-22 19:23] VITALS: BP 102/60; PULSE 78
--- NOTE | 2018-05-23 18:01 | PATH ---
Surgical Pathology Report Patient Name: SHAVONNE MONTAÑO Med. Rec. #: [id number] /Age/Gender: 1985 (Age: 32) / F Account: [id number] Location: [facility] MED/SURG Taken: 05/22/2018 Received: 05/22/2018 Reported: 05/23/2018 Physicians: Shahana Severino, [facility] Specimen(s) Received BX JEJUNUM Clinical History Abdominal pain Postoperative diagnosis: Epigastric pain Final Diagnosis JEJUNUM, BIOPSY: SMALL INTESTINAL MUCOSA WITH NO DIAGNOSTIC ABNORMALITIES. Electronically Signed Aria Cisneros M.D. Gross Description Received in formalin, labeled "jejunal biopsy" are 3 selby, irregular portions of soft tissue ranging from 0.1-0.3 cm. in greatest dimension. The specimens are submitted in toto in one cassette. /05/22/2018 saudi/05/22/2018
== END 2018-05-22 17:29 | disposition home or self-care (01) ==
LOC: JER 00:03 → JERBED 04:41 → OBSVTOIN 05:49 → J8W 22:05
PROVIDERS: ADMIT Internal Medicine; ATTEND Registered Nurse
PROC: 0DD88ZX Extraction of Small Intestine, Via Natural or Artificial Opening Endoscopic, Diagnostic (ICD-10-PCS; principal; 2018-05-19)
DX: K74.60 Unspecified cirrhosis of liver (principal); F17.210 Nicotine dependence, cigarettes, uncomplicated; K75.81 Nonalcoholic steatohepatitis (NASH); K80.20 Calculus of gallbladder without cholecystitis without obstruction; F32.9 Major depressive disorder, single episode, unspecified; D53.9 Nutritional anemia, unspecified; G47.30 Sleep apnea, unspecified; N93.9 Abnormal uterine and vaginal bleeding, unspecified; E66.01 Morbid (severe) obesity due to excess calories; E53.8 Deficiency of other specified B group vitamins; K29.70 Gastritis, unspecified, without bleeding; E78.5 Hyperlipidemia, unspecified; R10.11 Right upper quadrant pain; G62.9 Polyneuropathy, unspecified; F19.94 Other psychoactive substance use, unspecified with psychoactive substance-induced mood disorder; N92.6 Irregular menstruation, unspecified; R31.9 Hematuria, unspecified; Z68.41 Body mass index [BMI] 40.0-44.9, adult; Z98.84 Bariatric surgery status; Z87.442 Personal history of urinary calculi
CPT/HCPCS: 36415; 74177-TC; 76705-TC; 76830-TC; 80053; 80061; 81003; 81015; 82962; 83036; 83690; 83721; 84443; 84703; 85025; 85610; 85730; 86850; 86900; 86901; 88305-TC; 99284-25; G0378; J1644; J7030

== ENCOUNTER 2018-12-15 16:42 | Emergency (ER) | payer OTHER ==
[2018-12-15 16:53] VITALS: BP 104/83; PULSE 118; TEMP 98.1; BMI 43.2
--- NOTE | 2018-12-15 17:37 | PDOC ---
History of Present Illness - General Chief Complaint: Loss of Appetite Stated Complaint: SEVERE PAIN ABD,LEGS,NOT EATING Time Seen by Provider: 12/15/18 17:32 History Source: Patient Exam Limitations: No Limitations - History of Present Illness Initial Comments: 12/15/18 17:36 33 year old woman with a history of cholelithiasis, nephrolithiasis, cirrhosis, gastric bypass, neuropathy, depression, anemia, sleep apnea on CPAP and DM who presents with 3-4 days of pain with swallowing, 8/10 intermittent, nonradiating stabbing abdominal pain and bilateral neuropathic pain described as stabbing. Past History - Past Medical History Allergies/Adverse Reactions: Allergies Allergy/AdvReac Type Severity Reaction Status Date / Time gabapentin Allergy Mild Itching Verified 12/15/18 16:53 Home Medications: Ambulatory Orders Rifaximin [Xifaxan -] 550 mg PO DAILY 02/14/17 Spironolactone [Aldactone -] 25 mg PO BID 02/14/17 Zolpidem Tartrate [Ambien] 10 mg PO HS #14 tablet MDD 10 02/15/17 Cholecalciferol (Vitamin D3) [Vitamin D3 -] 1,000 unit PO DAILY 12/19/17 Folic Acid - 1 mg PO DAILY 12/19/17 Nadolol [Corgard -] 20 mg PO ASDIR 12/19/17 Lidocaine 5% Patch [Lidoderm -] 1 patch TP DAILY #7 patch 01/30/18 Dicyclomine HCl [Bentyl -] 20 mg PO Q6H PRN #30 tablet 05/22/18 Furosemide [Lasix] 40 mg PO DAILY #30 tablet 05/22/18 Ondansetron [Zofran Odt -] 4 mg SL TID PRN #30 od.tablet 05/22/18 Oxycodone HCl [Roxicodone] 5 mg PO QID PRN #15 tablet MDD 4 tab 05/22/18 Anemia: Yes Asthma: No Cancer: No Cardiac Disorders: No CVA: No COPD: No CHF: No Dementia: No Diabetes: No GI Disorders: Yes (liver cirrhosis (malnutrition)) Disorders: No HTN: No Hypercholesterolemia: No Kidney Stones: Yes Liver Disease: Yes (cirrhosis, no hepatitis, on transplant list) Seizures: No Thyroid Disease: No Other medical history: neuropathy - Surgical History Abdominal Surgery: Yes ( gastric bypass 2006) Appendectomy: No Cardiac Surgery: No Cholecystectomy: No GI Surgery: Yes (gastric bypass) Lung Surgery: No Neurologic Surgery: No Orthopedic Surgery: No - Reproductive History (#): 2 Para: 2 - Immunization History Immunization Up to Date: Yes - Suicide/Smoking/Psychosocial Hx Smoking Status: Yes Smoking History: Never smoked Have you smoked in the past 12 months: No Number of Cigarettes Smoked Daily: 3 If you are a former smoker, when did you quit?: 04/2015 Cigars Per Day: 0 'Breaking Loose' booklet given: 01/30/18 Hx Alcohol Use: Yes (1/2 botle of wine 3-4/week. currently reduced ) Drug/Substance Use Hx: No Substance Use Type: None Hx Substance Use Treatment: No Review of Systems - Review of Systems Able to Perform ROS?: Yes Is the patient limited Andorran proficient: No Constitutional: No: Chills, Diaphoresis, Fever HEENTM: No: Blurred Vision, Tinnitus Respiratory: No: Cough, Orthopnea, Shortness of Breath, SOB with Exertion Cardiac (ROS): No: Chest Pain, Lightheadedness, Palpitations ABD/GI: Yes: Difficulty Swallowing. No: Constipated, Diarrhea, Nausea, Vomiting : No: Burning, Dysuria, Hematuria Musculoskeletal: No: Back Pain Neurological: No: Headache, Numbness, Tingling *Physical Exam - Vital Signs Last Vital Signs Temp Pulse Resp BP Pulse Ox 98.1 F 118 H 20 104/83 99 12/15/18 16:48 12/15/18 16:48 12/15/18 16:48 12/15/18 16:48 12/15/18 16:48 - Physical Exam Comments: 12/15/18 21:09 GENERAL: Awake, alert, and fully oriented, in no acute distress HEAD: No signs of trauma, normocephalic, atraumatic EYES: PERRLA, EOMI, sclera anicteric, conjunctiva clear ENT: Auricles normal inspection, hearing grossly normal, nares patent, oropharynx clear without exudates. No swelling, no uvula deviation, flap on lingula (chronic/healed) .Moist mucosa NECK: Normal ROM, supple, no lymphadenopathy, JVD, or masses LUNGS: No distress, speaks full sentences, clear to auscultation bilaterally HEART: Regular rate and rhythm, normal S1 and S2, no murmurs, rubs or gallops, peripheral pulses normal and equal bilaterally. ABDOMEN: Soft, nontender, normoactive bowel sounds. No guarding, no rebound. No masses EXTREMITIES : Normal inspection, Normal range of motion, no edema. No clubbing or cyanosis. NEUROLOGICAL: Cranial nerves II through XII grossly intact. Normal speech, normal gait, no focal sensorimotor deficits SKIN: Warm, Dry, normal turgor, no rashes or lesions noted Moderate Sedation - Procedure Monitoring Vital Signs: Procedure Monitoring Vital Signs Temperature 98.1 F 12/15/18 16:48 Pulse Rate 118 H 12/15/18 16:48 Respiratory Rate 12/15/18 16:48 Blood Pressure 104/83 12/15/18 16:48 O2 Sat by Pulse Oximetry (%) 99 12/15/18 16:48 ED Treatment Course - LABORATORY CBC & Chemistry Diagram: 12/15/18 19:10 12/15/18 19:10 Medical Decision Making - Medical Decision Making 12/15/18 20:58 33 year old woman with a history of cholelithiasis, nephrolithiasis, cirrhosis, gastric bypass, neuropathy, depression, anemia, sleep apnea on CPAP and DM who presents with 3-4 days of pain with swallowing, 8/10 intermittent, nonradiating stabbing abdominal pain and bilateral neuropathic pain described as stabbing. ED Course: Consider for swallowing difficulty, esophageal stricture vs achalasia vs retropharyngeal abscess vs zenkers diverticulum leg pain consider neuropathy vs sciatica cbc, cmp, ua, upreg Will treat symptomatically and arrange for follow up Able to swallow fluids and morphine medication 12/15/18 21:10 *DC/Admit/Observation/Transfer Diagnosis at time of Disposition: Leg pain, Sore throat - Discharge Dispostion Disposition: HOME Condition at time of disposition: Stable Decision to Admit order: No - Referrals Referrals: [facility] [place] [Provider Group] - Patient Instructions Printed Discharge Instructions: DI for Leg Pain, DI for Peripheral Neuropathy, Sore Throat Additional Instructions: You were seen in the ED for complaints of sore throat when swallowing and neuropathic leg pain. In the ED you were evaluated with labwork and treated with pain medications and fluids. Your results were unremarkable and you showed improvement of symptoms. There does not appear to be an acute need for immediate hospitalization. You are advised to follow up with your Primary Care Physician within 1 week. You were given a referral to Internal Medicine Clinic and are advised to follow up within 1 week. Return to the ED immediately if you experience difficulty breathing, chest pain , shortness of breath, fever, worsening leg pain, leg weakness, numbness or tingling. - Post Discharge Activity
[2018-12-15] MEDS ORDERED: SODIUM CHLORIDE 1,000 ML IV SCH (19:00)
[2018-12-15 19:17] LABS: BASO % 1.2 % (0-2.0); EOS % 2.5 % (0-4.5); HEMATOCRIT 32.7 % (32.4-45.2); HEMOGLOBIN 11.2 GM/dL (10.7-15.3); MCH 33.7 pg (25.7-33.7); MCHC 34.2 g/dl (32.0-36.0); MEAN CELL VOLUME 98.5 fl (80-96); MEAN PLT VOLUME 7.8 fl (7.5-11.1); NEUT % 65.3 % (42.8-82.8); PLATELET COUNT 144 K/MM3 (134-434); RBC 3.32 M/mm3 (3.60-5.2); RDW 23.1 % (11.6-15.6); WHITE BLOOD COUNT 3.9 K/mm3 (4.0-10.0)
[2018-12-15 19:50] LABS: ALBUMIN 2.6 g/dl (3.4-5.0); ALK PHOS 224 U/L (45-117); ANION GAP 9 MMOL/L (8-16); BILIRUBIN,TOTAL 1.6 mg/dL (0.2-1); BLOOD UREA NITROGEN 5 mg/dL (7-18); CALCIUM 8.1 mg/dL (8.5-10.1); CHLORIDE 102 mmol/L (98-107); CO2 28 mmol/L (21-32); CREATININE 0.5 mg/dL (0.55-1.3); GLUCOSE,RANDOM 77 mg/dL (74-106); POTASSIUM 3.9 mmol/L (3.5-5.1); SGOT/AST 82 U/L (15-37); SGPT/ALT 30 U/L (13-61); SODIUM 139 mmol/L (136-145); TOT PROT 6.6 g/dl (6.4-8.2)
[2018-12-15 19:53] LABS: URINE APPEARANCE SLCLOUDY; URINE BILIRUBIN NEGATIVE (<2.0 mg/dL); URINE COLOR YELLOW; URINE GLUCOSE (UA) NEGATIVE (NEGATIVE); URINE KETONE NEGATIVE (NEGATIVE); URINE LEUK ESTERASE 2+ (NEGATIVE); URINE NITRITE NEGATIVE (NEGATIVE); URINE PROTEIN NEGATIVE (NEGATIVE); URINE UROBILINOGEN NEGATIVE mg/dL (0.2-1.0)
[2018-12-15 19:54] LABS: HCG,QUALITATIVE URINE Negative
[2018-12-15 19:55] LABS: EPI CELLS FEW /HPF (FEW); URINE BACTERIA RARE /hpf (NONE SEEN); URINE MUCUS RARE
[2018-12-15] MEDS ORDERED: morphine SULFATE IMMEDIATE RELEASE 30 MG TAB PO ONE (20:21)
--- NOTE | 2018-12-15 20:52 | PDOC ---
Attending Attestation - Resident Resident Name: Maryan Pickard - ED Attending Attestation I have performed the following: I have examined & evaluated the patient, The case was reviewed & discussed with the resident, I agree w/resident's findings & plan, Exceptions are as noted - HPI HPI: 12/15/18 20:50 33 yo female p/w complaint of worsening peripheral neuropathy with stabbing , burning pain to soles of her feet. She states this has become worse over the psat 5 days. Denies recent trauma.Her PCP recently and now she states she has no primary physician PMH ESQUIVEL PSH gastric bypasss 2006,peripheral neuropathy 12/15/18 20:52 - Physicial Exam PE: 12/15/18 20:54 33 yo female ambulating in the ER w c/o stabbing pain to soles of her feet and dysphasia for 4 days . Able to swallow fluids ,able to take her medications in the emergency department. Swallowed pills with no problem head ncat throat no exudates ,uvula no edema,midnight neck supple lungs cta b/l cvs [id number] abd no rebound,no guarding ext no edema, some scaliness to skin on soles of feet, no erythema skin warm and dry neuro axox3,ambulatory,motor strength 5/5 psych anxious 12/15/18 20:57 - Medical Decision Making 12/15/18 21:00 pt received IVF, swallowed pain medications w/o problem no difficulty swallowing meds,fluids. Her speech is clear, she is handling her own saliva. No respiratory distress -labs reviewed and reflect her chronic liver cirrhosis imp peripheral neuropathy, will followup in either [address] [place] [address] clinic or the clinic on [address] -she already has an appt with her GI specialist thsi month <Diamante Mcmahon - Last Filed: 12/15/18 21:00> - HPI HPI: 12/15/18 21:28 The patient is a 33 year old female with a past history of cholelithiasis, nephrolithiasis, cirrhosis, gastric bypass, neuropathy, depression, anemia, sleep apnea (on CPAP) and DM who presents to the ED today complaining of throat pain for the past 4 days, abdominal pain, and neuropathic pain. Patient reports pain pain with swallowing. She also reports a 8/10 intermittent generalized abdominal pain that she describes as a stabbing like sensation. Denies fevers or chills. Denies any other symptoms. <Aguila Pantoja - Last Filed: 12/15/18 21:29> Attestations - Attestations 12/15/18 21:28 Documentation prepared by Aguila Pantoja, acting as registered medical assistant for Diamante Mcmahon MD <Aguila Pantoja - Last Filed: 12/15/18 21:29>
[2018-12-15] MEDS ORDERED: morphine SULFATE IMMEDIATE RELEASE 30 MG TAB ONE (20:53)
== END 2018-12-15 22:13 | disposition home or self-care (01) ==
LOC: JER 16:42
DX: J02.9 Acute pharyngitis, unspecified (principal); G62.9 Polyneuropathy, unspecified; K74.69 Other cirrhosis of liver; F32.9 Major depressive disorder, single episode, unspecified; G47.39 Other sleep apnea; Z99.89 Dependence on other enabling machines and devices; Z87.19 Personal history of other diseases of the digestive system; Z87.442 Personal history of urinary calculi; Z98.84 Bariatric surgery status
CPT/HCPCS: 36415; 80053; 81003; 81015; 84703; 85025; 99281-25; J7030